=== PATIENT | female | born 1960 | race Caucasian/White ===

== ENCOUNTER → 2019-06-07 12:49 | Outpatient (BNVA) | payer MEDICARE, MEDICAID, SELFPAY | PROVIDERS: Family Provider Family Medicine; PCP Family Medicine; Visit Provider Nurse Practitioner Psychiatric/Mental Health | DX: F33.1 Major depressive disorder, recurrent, moderate (principal); Z63.79 Other stressful life events affecting family and household; F17.219 Nicotine dependence, cigarettes, with unspecified nicotine-induced disorders | CPT/HCPCS: 99213 ==

== ENCOUNTER 2019-06-21 14:35 | Outpatient (CLI) | payer MEDICARE, MEDICAID, SELFPAY ==
--- NOTE | 2019-06-21 14:44 | CT_ITS ---
WS: [id number] CT LUNG CANCER SCREENING DLP: 70.42 mGy.cm DIvol: 1.96 mGy CLINICAL INFORMATION SCREENING VISIT: Baseline COMPARISON: None available. FINDINGS Diagnostic quality: Satisfactory Comments: None. Lung Nodules: Benign calcified nodule RIGHT upper lobe measures 9 x 4 mm. There are no additional non calcified nodules are subsolid nodules. Subsegmental area of atelectasis at the lingula. Lungs: Lungs are mildly hyperexpanded. Curvilinear scar in the medial RIGHT lower lobe adjacent to th e spine. Heart: Normal size with no calcifications in the coronary arteries. No pericardial effusion. Other findings: Scattered calcification in aorta. No aneurysm Mild increase in thoracic kyphosis. No osteoblastic or osteolytic bone disease.. Pulmonary artery siz e is equal to the aorta. Small hiatal hernia. CT/CT lung screening [id number] IMPRESSION: LUNG-RADS: 1-Negative FOLLOW UP: 12 Month: Continue annual screening with LDCT 1. RIGHT upper lobe benign granuloma. 2. Mild coronary artery atherosclerosis.
--- NOTE | 2019-06-21 16:04 | XR_ITS ---
WS: [id number] SCREENING DEXA SCAN [employer] CLINICAL INFORMATION: DEXA COMPARISON: None. FINDINGS: The L1-L4 bone mineral density measures 1.229 g/cm2. This corresponds to a T score score of 0.4 and Z score of 1.0. Left femoral neck bone mineral density measures 1.052 g/cm2. This corresponds to a T score of 0.4 and Z score of 0.8. Right femoral neck bone mineral density measures 1.077 g/cm2. This corresponds to a T score 0.6of and Z score of 1.0. Mean femoral neck bone mineral density measures 1.065 g/cm2. This corresponds to a T score of 0.5 and Z score of 0.9. XR/XR DEXA axial skeleton* [id number] IMPRESSION: Normal bone mineralization. Patient's FRAX calculated 10 year probability for major osteoporotic fracture i s 6.1 % and osteoporotic hip fracture is 0.3%.
== END 2019-06-21 14:36 | disposition home or self-care (01) ==
PROVIDERS: Family Provider Family Medicine; PCP Family Medicine; Visit Provider Family Medicine
DX: Z12.2 Encounter for screening for malignant neoplasm of respiratory organs (principal); Z78.0 Asymptomatic menopausal state; J84.10 Pulmonary fibrosis, unspecified; I25.10 Atherosclerotic heart disease of native coronary artery without angina pectoris
CPT/HCPCS: 77080; G0297

== ENCOUNTER 2019-06-29 04:39 | Emergency (ER) | payer MEDICARE, MEDICAID, SELFPAY ==
[2019-06-29] VITALS (13 sets, daily range): BP systolic 134–155; BP diastolic 55–83; PULSE 80–97; RESP 16–18; O2SAT 93–99; BMI 29.9
--- NOTE | 2019-06-29 04:44 | ED_ITS ---
Entered by Kristen Núñez, acting as scribe for HPI - SOB/Dyspnea General: Chief Complaint: Shortness of Breath/Dyspnea Stated Complaint: sob/hurts to breathe Time Seen by Provider: 06/29/19 04:43 Source: patient Mode of arrival: ambulatory Limitations: no limitations History of Present Illness: HPI Narrative: 58 yo f came to the er pov for shortness of breath and hurts to breath. Onset was this morning. Pt states that she went to urgent care on tuesday for chest congestion and pain in her back and has not gotten any better at this time. Pt states that she has a productive cough. MD elicited complaint: shortness of breath and cough Onset (ago): day(s) (2 days ago) Context: recent illness Timing: intermittent Severity: mild Exacerbating factors: nothing Relieving factors: nothing Associated symptoms: Reports chest congestion; Deny abdominal pain, chest pain, fever(s), nausea or vomiting Treatment prior to arrival: none Related Data: Home oxygen amount: none Review of Systems General: Reports: other (negative unless marked) Const: Denies: fever, chills, body aches or change in appetite Eyes: Denies: blurry vision or eye discomfort ENMT: Denies: throat pain or dental pain Card: Denies: chest pain Resp: Reports: shortness of breath and chest congestion GI: Denies: abdominal pain, nausea, vomiting or diarrhea : Denies: painful urination Musc: Denies: neck pain or back pain Skin/Breast: Denies: rash Neuro: Denies: headache Psych: Denies: depression Gavin/Lymph: Denies: easy bruising All/Imm: Denies: hives PFS ED PFSH: Social History Smoking and tobacco status: current every day smoker cigarettes Packs smoked per day: 0.25 Alcohol intake: never Lives independently: Yes Household members: significant other Marital status: Life Partner Female Reproductive History: Para: 4 Spontaneous abortions: Yes Physical Exam Const: COMMON NORMALS: no apparent distress, oriented x3 and healthy appearing HENMT: COMMON NORMALS: normocephalic and head/scalp atraumatic HEAD & SCALP: normocephalic and atraumatic Eye: COMMON NORMALS: PERRL and EOMs intact bilaterally PUPIL: Yes PERRL Neck/C-Spine: COMMON NORMALS: full ROM and supple Chest: COMMONS NORMALS: inspection of chest normal and palpation of chest normal Resp: COMMON NORMALS: normal respiratory effort, no retractions, no use of accessory muscles and clear to auscultation bilaterally AUSCULTATION: clear to auscultation bilaterally Cardio: COMMON NORMALS: regular rate, regular rhythm and no murmurs RATE: regular rate RHYTHM: regular rhythm GI: COMMON NORMALS: normal to inspection, nondistended, normoactive bowel sounds, soft to palpation, non-tender and no masses PALPATION: Yes soft Extremity: COMMON NORMALS: normal to inspection and full ROM Neuro: COMMON NORMALS: oriented x3, moves all extremities and no focal motor deficits Psych: COMMON NORMALS: mental status grossly normal, thought process normal and cooperative THOUGHT PROCESS: normal thought process Skin: COMMON NORMALS: no rashes or lesions noted and no wounds GENERAL SKIN EXAM: no rashes or lesions noted Course Vital Signs: Vital signs: Vital Signs Pulse Rate 93 06/29/19 06:05 Respiratory Rate 18 06/29/19 05:35 Blood Pressure 146/76 06/29/19 06:10 Pulse Oximetry 94 06/29/19 06:05 MDM - SOB/Dyspnea MDM Narrative: Medical decision making narrative: Patient presents here with chest pain that is very atypical in nature. Patient was recently diagnosed with the flu likely causing this. Her d-dimer is negative with no signs of pulmonary embolism. Patient's EKG and troponin are normal as well. Patient is stable for discharge and is return if worsening. Lab Data: Labs: Lab Results 06/29/19 06/29/19 06/29/19 Range/Units 04:52 05:15 05:15 WBC 6.9 (4.0-10.0) 10^3/ uL RBC 4.41 (4.1-5.3) 10^6/u L Hgb 13.3 (11.5-15.3) g/dL Hct 40.4 (37.0-47.0) % MCV 91.6 (81-99) fL MCH 30.2 (28.0-34.0) pg MCHC 32.9 (30.0-36.0) g/dL RDW 12.4 (12.1-15.1) % Plt Count 180 (130-400) 10^3/c mm MPV 11.2 H (7.4-10.4) fL Neut % (Auto) 58.1 % Lymph % (Auto) 31.3 % Barber % (Auto) 8.7 % Eos % (Auto) 0.9 % Baso % (Auto) 0.6 % Neut # (Auto) 4.0 (1.8-7.7) 10^3/u L Lymph # (Auto) 2.2 (0.8-4.8) 10^3/u L Barber # (Auto) 0.6 (0.2-0.9) 10^3/u L Eos # (Auto) 0.1 (0.0-0.8) 10^3/u L Baso # (Auto) 0.0 (0.0-0.1) 10^3/u L Nucleated RBC % (a uto) 0 % Nucleated RBCs # 0.0 /100WBC PT 12.70 (10.5-13.3) SECO NDS INR 0.92 (0.8-1.2) D-Dimer 0.32 (0-0.59) ug/mIFE U Sodium (136-145) mmol/L Potassium (3.5-5.1) mmol/L Chloride (98-107) mmol/L Carbon Dioxide (22-29) mmol/L Anion Gap (5-19) BUN (6-20) mg/dL Creatinine (0.5-0.9) mg/dL GFR Calculation (90-130) mL/min Glucose (65-115) mg/dL Calcium (8.5-10.5) mg/dL Total Bilirubin (0.15-1.2) mg/dL AST (0-32) U/L ALT (0-33) U/L Alkaline Phosphata se (35-105) IU/L Troponin T Baselin e (0-10) ng/mL Total Protein (6.6-8.7) g/dL Albumin (3.5-5.2) g/dL Globulin (1.3-4.6) g/dL Influenza Type A A g Positive H (Negative) POC Influenza B Ag Negative (Negative) 06/29/19 06/29/19 Range/Units 05:15 05:15 WBC (4.0-10.0) 10^3/ uL RBC (4.1-5.3) 10^6/u L Hgb (11.5-15.3) g/dL Hct (37.0-47.0) % MCV (81-99) fL MCH (28.0-34.0) pg MCHC (30.0-36.0) g/dL RDW (12.1-15.1) % Plt Count (130-400) 10^3/c mm MPV (7.4-10.4) fL Neut % (Auto) % Lymph % (Auto) % Barber % (Auto) % Eos % (Auto) % Baso % (Auto) % Neut # (Auto) (1.8-7.7) 10^3/u L Lymph # (Auto) (0.8-4.8) 10^3/u L Barber # (Auto) (0.2-0.9) 10^3/u L Eos # (Auto) (0.0-0.8) 10^3/u L Baso # (Auto) (0.0-0.1) 10^3/u L Nucleated RBC % (a uto) % Nucleated RBCs # /100WBC PT (10.5-13.3) SECO NDS INR (0.8-1.2) D-Dimer (0-0.59) ug/mIFE U Sodium 141 (136-145) mmol/L Potassium 3.6 (3.5-5.1) mmol/L Chloride 103 (98-107) mmol/L Carbon Dioxide 25 (22-29) mmol/L Anion Gap 16.6 (5-19) BUN 12 (6-20) mg/dL Creatinine 0.7 (0.5-0.9) mg/dL GFR Calculation 85.6 L (90-130) mL/min Glucose 97 (65-115) mg/dL Calcium 9.0 (8.5-10.5) mg/dL Total Bilirubin 0.3 (0.15-1.2) mg/dL AST 19 (0-32) U/L ALT 23 (0-33) U/L Alkaline Phosphata se 85 (35-105) IU/L Troponin T Baselin e 7 (0-10) ng/mL Total Protein 7.1 (6.6-8.7) g/dL Albumin 4.3 (3.5-5.2) g/dL Globulin 2.8 (1.3-4.6) g/dL Influenza Type A A g (Negative) POC Influenza B Ag (Negative) Imaging Data^: CXR: Attestation: I personally reviewed and interpreted this imaging study as follows: My impression: No acute abnormality EKG Data^: EKG 1: Attestation: I personally reviewed and interpreted this EKG as follows: EKG Interpretation Date: 06/29/19 EKG interpretation time: 04:55 Interpretation: nsr hr [address] or t wave abnormalities qrs 93 qtc 383 Discharge Plan Discharge Patient Disposition: Home, Self-Care Clinical Impression: Influenza Condition: Stable Prescriptions: New Tamiflu 75 mg capsule 75 mg PO BID 5 Days Qty: 10 RF: 0 No Action Trintellix 5 mg tablet 5 mg PO .morning Qty: 30 RF: 0 hydroxyzine HCl 50 mg tablet 50 mg PO BID PRN (Reason: anxiety) Qty: 60 RF: 4 rosuvastatin [Crestor] 20 mg tablet 20 mg PO QDAY RF: 0 diclofenac sodium [Voltaren] 1 % gel 4 gm TOPICAL QID PRNRF: 0 omeprazole 10 mg capsule,delayed release(DR/EC) 10 mg PO QDAY RF: 0 tiagabine 2 mg tablet 2 mg PO .one in am two in pm RF: 0 albuterol sulfate [Ventolin HFA] 90 mcg/actuation HFA aerosol inhaler 2 puff INHALATION Q6H PRN (Reason: shortness of breath or wheezing) Qty: 8.5 RF: 0 ibuprofen 800 mg tablet 800 mg PO TID PRN (Reason: pain) Qty: 90 RF: 0 amlodipine 5 mg tablet 5 mg PO QDAY Qty: 30 RF: 0 Discharge Orders: Discharge Order (Routine); Ordered 06/29/19 Ordered By: Therese Hebert Referrals: Kia Dave DO [Primary Care Provider] - 1-3 days Discharge Diet: Advance as tolerated Discharge Activity: Resume usual activity Patient Instructions: Influenza (ED) Discharge Date/Time: 06/29/19 06:26 Coding Level of Care Code ED Manifest/Order Organizer Print Orders for Chg Fwd Exam Comprehensive The documentation recorded by the Wilton mccullough Stephanie Lyn, accurately reflects the service I personally performed and the decisions made by me, Therese Hebert MD Jun 29, 2019 04:39
--- NOTE | 2019-06-29 04:48 | XR_ITS ---
WS: [id number] XR chest 1V portable [id number] REASON FOR EXAM: cp FINDINGS: The heart and mediastinal interfaces normal. The lung orozco are well aerated no pneumonia, pleural effusion, pulmonary edema, pneumothorax, or ma ss effect. The hilum and apices normal. No osseous abnormalities. XR/XR chest 1V portable [id number] IMPRESSION: Negative chest for active pathology.
--- NOTE | 2019-06-29 04:58 | PC.NURSE ---
EKG done at 0450 and shown to ER doctor. UA collected and sent to lab.
[2019-06-29] MEDS: sodium chloride 0.9% 1,000 ML 999 ML IV (05:08)
[2019-06-29 05:20] LABS: Influenza A by IFA Positive (Negative); Influenza B by IFA Negative (Negative)
[2019-06-29 05:34] LABS: Basophils % 0.6 %; Eosinophils # 0.1 10^3/uL (0.0-0.8); Eosinophils % 0.9 %; Hematocrit 40.4 % (37.0-47.0); Hemoglobin 13.3 g/dL (11.5-15.3); Lymphocytes # 2.2 10^3/uL (0.8-4.8); Lymphocytes % 31.3 %; Mean Corpuscular HGB Conc 32.9 g/dL (30.0-36.0); Mean Corpuscular Hemoglobin 30.2 pg (28.0-34.0); Mean Corpuscular Volume 91.6 fL (81-99); Mean Platelet Volume 11.2 fL (7.4-10.4); Monocytes # 0.6 10^3/uL (0.2-0.9); Monocytes % 8.7 %; Neutrophils % 58.1 %; Nucleated Red Blood Cells % 0 %; Platelet Count 180 10^3/cmm (130-400); Red Blood Count 4.41 10^6/uL (4.1-5.3); Red Cell Distribution Width 12.4 % (12.1-15.1); White Blood Count 6.9 10^3/uL (4.0-10.0)
[2019-06-29] MEDS: ipratropium-albuterol 3 mL Neb INHALATION (05:35)
[2019-06-29 05:48] LABS: INR 0.92 (0.8-1.2)
[2019-06-29 05:51] LABS: D Dimer 0.32 ug/mIFEU (0-0.59)
[2019-06-29 05:58] LABS: Alanine Aminotransferase 23 U/L (0-33); Albumin Level 4.3 g/dL (3.5-5.2); Alkaline Phosphatase 85 IU/L (35-105); Anion Gap 16.6 (5-19); Aspartate Amino Transferase 19 U/L (0-32); Blood Urea Nitrogen 12 mg/dL (6-20); Carbon Dioxide 25 mmol/L (22-29); Chloride 103 mmol/L (98-107); Globulin 2.8 g/dL (1.3-4.6); Glomerular Filtration Rate 85.6 mL/min (90-130); Glucose 97 mg/dL (65-115); Potassium 3.6 mmol/L (3.5-5.1); Sodium 141 mmol/L (136-145); Total Bilirubin 0.3 mg/dL (0.15-1.2); Total Protein 7.1 g/dL (6.6-8.7)
[2019-06-29 06:01] LABS: Troponin(5th) Baseline 7 ng/mL (0-10)
--- NOTE | 2019-06-29 11:19 | ECG_ITS ---
Measurements Intervals [place] Rate: 85 P: 57 OH: 162 QRS: 51 QRSD: 93 T: 55 QT: 341 QTc: 406 SINUS RHYTHM POSSIBLE RIGHT VENTRICULAR CONDUCTION DELAY [RSR (QR) IN V1/V2] Compared to ECG 11/09/2018 17:31:50 No significant changes Electronically Signed On 06-29-2019 15:37:44 BRACER by Yoselin Packer M.D. [email or web address]
== END 2019-06-29 06:26 | disposition home or self-care (01) ==
PROVIDERS: Emergency Provider Emergency Medicine; Family Provider Family Medicine; PCP Family Medicine
DX: J11.1 Influenza due to unidentified influenza virus with other respiratory manifestations (principal); F17.210 Nicotine dependence, cigarettes, uncomplicated
CPT/HCPCS: 12345; 71045; 80053; 84484; 85025; 85378; 85610; 87804; 93005; 94640; 96360; 99283; 99284; J7030; J7611

== ENCOUNTER 2019-07-02 15:31 | Outpatient (CLI) | payer MEDICARE, MEDICAID, SELFPAY ==
--- NOTE | 2019-07-02 15:47 | MM_ITS ---
WS: [id number] BILATERAL SCREENING DIGITAL MAMMOGRAM WITH CAD HISTORY: SCREENING COMPARISON: 05/03/2018 and 04/16/2000 09/03/2013 Bilateral CC and MLO views submitted. Computer aided detection analyzed. Breast composition: There are scattered areas of fibroglandular density. No suspicious masses, microc alcifications or architectural distortion. Long-term stability of asymmetry upper outer quadrant of t he LEFT breast. MM/[place] [id number] IMPRESSION: BI-RADS: 2-Benign FOLLOW UP: 1 Year Follow-up
== END 2019-07-02 15:32 | disposition home or self-care (01) ==
LOC: RADSHAW 15:37
PROVIDERS: Family Provider Family Medicine; PCP Family Medicine; Visit Provider Family Medicine
DX: Z12.31 Encounter for screening mammogram for malignant neoplasm of breast (principal)
CPT/HCPCS: 77067

== ENCOUNTER → 2019-07-09 13:41 | Outpatient (BNVA) | payer MEDICARE, MEDICAID, SELFPAY | PROVIDERS: Family Provider Family Medicine; PCP Family Medicine; Visit Provider Nurse Practitioner Psychiatric/Mental Health | DX: F33.1 Major depressive disorder, recurrent, moderate (principal); Z63.79 Other stressful life events affecting family and household; F17.219 Nicotine dependence, cigarettes, with unspecified nicotine-induced disorders | CPT/HCPCS: 99213 ==

== ENCOUNTER → 2019-07-26 16:31 | Outpatient (BNVA) | payer MEDICARE, MEDICAID, SELFPAY | PROVIDERS: Family Provider Family Medicine; PCP Family Medicine; Visit Provider Nurse Practitioner | DX: J44.9 Chronic obstructive pulmonary disease, unspecified (principal) | CPT/HCPCS: 71046; 85025 ==

== ENCOUNTER 2019-09-20 06:42 | Outpatient (CLI) | payer MEDICARE, MEDICAID, SELFPAY ==
[2019-09-19 10:10] VITALS: BMI 32.8
[2019-09-20] VITALS (10 sets, daily range): BP systolic 100–118; BP diastolic 51–80; PULSE 71–80; RESP 14–20; TEMP 37; O2SAT 92–96
--- NOTE | 2019-09-20 06:00 | XACV_ITS ---
Exam Room: [facility] Gender: Female : 1960 Any Known Allergies: Other Exam Priority: Routine Procedure(s): Procedure Description: Diagnostic procedure Procedure Description: Left Heart Catheterization Procedure Description: Left ventriculography Procedure Description: Coronary Angiography Diagnostic Cath Status: Elective Diagnostic Findings Patient with continued unrelenting chest pain despite 2- stress test. Recommended for coronary angiography. Procedure was done from the right radial artery. There is right coronary artery dominance. The left main and LAD are normal. Circumflex contains mild 20% narrowing in the proximal portion but otherwise the artery is normal. The right coronary artery is the dominant vessel. There is minor 10 to 20% narrowing in the midportion but otherwise the vessel is normal. Conclusions Minimal nonobstructive coronary artery disease with normal LV function. Interventional RX Recommendation: none Diagnostic RX Recommendation: none Anticoagulation: Heparin Ventriculography Ejection Fraction: 70.0 % Pressures Phase:Rest AO : 95 mmHg / 72 mmHg ( 83 mmHg ) @ 2:19:00 AM 121 mmHg / 60 mmHg ( 87 mmHg ) @ 2:26:00 AM 120 mmHg / 61 mmHg ( 88 mmHg ) @ 2:26:00 AM LV : 127 mmHg / -18 mmHg / @ 2:24:00 AM 122 mmHg / -15 mmHg / @ 2:25:00 AM 125 mmHg / -15 mmHg / @ 2:26:00 AM Valves Phase:DefaultPhase AV : 4.0 mmHg @ 7:32:06 AM AV Mean Gradient: 13.0 mmHg @ 7:32:06 AM 13.0 mmHg @ 7:32:06 AM Clinical Evaluation EBL: 5mL-10mL Procedural Details Procedure Consent Obtained. Pre-Procedure Time Out. Identified patient by full name and date of as verbalized by the patient/guarantor. Does the consent match the physician's order: Yes. Accurate & Complete Informed Consent: Yes. Inpatient/Outpatient History & Physical on Chart: Yes. If H&P is completed, is and addenduem needed: Yes; If yes, is the addendum complete: Yes. Visualize and Verify Site with Patient/Guarantor: N/A. Relevant Radiology Images available: Yes. Pre-op teaching completed and patient verbalized understanding. The risks, benefits, and alternatives of sedation and/or procedure were discussed by physician. The patient agrees to continue. Procedure started. [facility] Clinical Fraility Score: 3: Managing Well. Backup Engineer Indications: New Onset Angina. Chest Pain Symptom Assessment: Typical Angina Symptoms. Correct patient, site and procedure confirmed by cath team. Current diagnosis: Chest Pain. PERRLA. 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 Lungs clear x 5 lobes. IV Site on Arrival: 20 gauge in the left anticubital. IV Fluids: 0.9% NaCl at KVO. 0 mL infused prior to laborer. Pre Procedural Pulses: bilateral dorsalis pedis was 2+. Pre Procedural Pulses: bilateral posterior tibial was 2+. Pre Procedural Pulses: bilateral radial was 3+. Oxygen started at 2liters/min via nasal canula. right radial was prepped with chloroprep then draped in the usual sterile fashion. right groin was prepped with chloroprep then draped in the usual sterile fashion. Physician notified. Baseline sample Acquired. HR: 74 BPM. Patient's family unavailable. Physician arrived. Physician scrubbed in. Immediate Pre-Procedure Time Out. Correct Patient: Yes; Correct Procedure: Yes; Correct Site: Yes; Correct Patient Position: Yes; Correct Supplies: Yes; Dried Flammable Prep: Yes; Blood Products Available: N/A;. Lidocaine 1% infiltrated to the right radial. Arterial access obtained. A 6 lao TIG catheter in over wire. Multiple views taken of left coronary artery. Multiple views taken of right coronary artery. Catheter removed over the exchange wire. A 6 lao Angled Pig catheter in over wire. EDP Sample taken: LV 127/-19,12; HR: 88 BPM; SpO2: 99%. LV gram performed in JACKSON @ 10 mL/second for a total of 30 mL. EDP Sample taken: LV 122/-16,10; HR: 78 BPM; SpO2: 99%. Pullback taken: LV 125/-16,10; AO 121/60(87); Mean: 13mmHg, Peak to Peak: 4mmHg, SEP: 17sec/min; HR: 78 BPM; SpO2: 100%. Catheter removed over the exchange wire. Physician scrubbed out. TR band placed. Hemostasis obtained. A TR Band was successful obtaining hemostatsis at the Right Radial artery insertion site. Post Procedure: Pulses reassessed and unchanged. PERRLA. 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 No VTE prophylaxis required. Total IV fluids: 50 mL. Contrast type used: Visipaque 320 mgI/mL, 500 mL bottle. Medication's Wasted: Lidocaine 1% = 18 mL. Medication's Wasted: Nitro = 49.8 mg. Medication's Wasted: Heparin = 1000 units. Medication's Wasted: Other = Versed 3 mg. Post-op diagnosis: Normal Coronaries. Complications: None. Estimated blood loss: 5mL-10mL. Procedure completed. Patient transferred by wheelchair to ICU. Vital chart was stopped. Site: Right Radial artery Sheath Size: 6 Fr Hemostasis Method: TR Band Hemostasis Success: Successful Procedure Medications Start: 7:14 AM Stop: 7:14 AM Medication: Versed Amount: 2 mg Route: I.V. Start: 7:16 AM Stop: 7:16 AM Medication: Verapamil Amount: 5 mg Route: I.A. Start: 7:16 AM Stop: 7:16 AM Medication: Nitrogylcerin Amount: 200 mcg Route: I.A. Start: 7:19 AM Stop: 7:19 AM Medication: Heparin Amount: 5000 units Route: I.V. I, the attending physician, have reviewed and verified all procedure medications. Yes, all medications given per verbal order History/Risk Factors Hypertension: Yes Dyslipidemia: Yes Peripheral Arterial Disease (PAD): No Myocardial Infarction (AZ): No Obesity: Yes Renal Disease: No Tobacco Use: Current/Recent(w/in 1 year) Prior Interventions PCI: No CABG: No Valve Surgery: No Report Signatures Finalized by:Dr. Chucky Julien MD on 09/20/2019 7:38:20 AM
[2019-09-20] MEDS: diphenhydrAMINE 50 mg Capsule PO (06:19)
[2019-09-20 06:42] LABS: Basophils # 0.1 10^3/uL (0.0-0.1); Basophils % 1.2 %; Eosinophils # 0.5 10^3/uL (0.0-0.8); Hematocrit 42.3 % (37.0-47.0); Hemoglobin 13.9 g/dL (11.5-15.3); Lymphocytes % 33.8 %; Mean Corpuscular HGB Conc 32.9 g/dL (30.0-36.0); Mean Corpuscular Hemoglobin 29.4 pg (28.0-34.0); Mean Corpuscular Volume 89.4 fL (81-99); Mean Platelet Volume 10.7 fL (7.4-10.4); Monocytes # 0.7 10^3/uL (0.2-0.9); Monocytes % 7.8 %; Neutrophils # 4.5 10^3/uL (1.8-7.7); Neutrophils % 50.9 %; Nucleated Red Blood Cells % 0 %; Platelet Count 228 10^3/cmm (130-400); Red Blood Count 4.73 10^6/uL (4.1-5.3); Red Cell Distribution Width 12.1 % (12.1-15.1); White Blood Count 8.9 10^3/uL (4.0-10.0)
[2019-09-20 06:51] LABS: Anion Gap 16.1 (5-19); Blood Urea Nitrogen 14 mg/dL (6-20); Calcium 9.2 mg/dL (8.5-10.5); Carbon Dioxide 25 mmol/L (22-29); Chloride 104 mmol/L (98-107); Glomerular Filtration Rate 64.1 mL/min (90-130); Glucose 112 mg/dL (65-115); Osmolality Calculated 289 mOsm/kg (285-295); Potassium 4.1 mmol/L (3.5-5.1); Sodium 141 mmol/L (136-145)
--- NOTE | 2019-09-20 06:59 | PM.HP ---
Providers/Chief Complaint Admitting Physician: Chucky Julien MD Primary Care Provider: Kia Dave DO Chief Complaint: chest pain History of Present Illness Katiuska Mojica is a 58 year old female who is being put in the hospital today for purposes of cardiac catheterization. She has seen 1 of my associates as an outpatient describing a heaviness in her chest and describing it as a chest cold . It last 2 to 3 minutes. Is relieved with rest. She feels like it gets worse if she is under stress or gets anxious. She complains of fatigue, palpitations and shortness of breath. She has had stress testing in the past which is been negative. More recently a sestamibi examination continues to be normal. Because of her continued symptoms it is been recommended she undergo coronary angiography. Review of Systems General: Reports: 10 or more systems reviewed and unremarkable except in HPI and below Medications/Allergies Home Medications Medication Instructions Recorded Confirmed Last Taken Type diclofenac sodium 1 % topical gel 4 gm TOPICAL QID PRN 05/11/19 09/19/19 Unknown History hydroxyzine HCl 50 mg tablet 50 mg PO BID PRN #60 tab 06/07/19 09/19/19 Unknown Rx bupropion HCl 75 mg tablet 75 mg PO .morning #30 tab 07/09/19 09/19/19 09/19/19 08:00 Rx albuterol sulfate 90 mcg/actuation 2 puff INHALATION Q6H PRN #8.5 gm 07/10/19 09/19/19 09/19/19 20:00 Rx aerosol inhaler nitroglycerin 0.4 mg sublingual 0.4 mg SUBLINGUAL Q5M PRN #1 pkg 08/13/19 09/19/19 Unknown Rx tablet rosuvastatin 20 mg tablet 20 mg PO QDAY #30 tab 08/21/19 09/19/19 09/19/19 20:00 Rx umeclidinium 62.5 mcg-vilanterol 1 inh INHALATION Q24H 90 Days #60 08/21/19 09/19/19 09/19/19 20:00 Rx 25 mcg/actuation powdr for each inhalation albuterol sulfate 2.5 mg INHALATION Q4H PRN #90 ml 09/03/19 09/19/19 09/19/19 20:00 Rx sodium chloride 7 % for 1 inh INHALATION BID #240 ml 0509/19/19 09/19/19 20:00 Rx nebulization tiagabine 2 mg tablet 2 mg PO .one in am two in pm #90 09/10/19 09/19/19 09/19/19 20:00 Rx tab amlodipine 10 mg PO QDAY 09/19/19 09/19/19 09/20/19 05:30 History aspirin 325 mg PO BID 09/19/19 09/19/19 09/19/19 08:00 History Allergies Allergy/AdvReac Type Severity Reaction Status Date / Time fentanyl Allergy Severe ADR-Confusi Verified 09/20/19 06:46 on morphine Allergy Severe ADR-Nausea Verified 09/20/19 06:46 acetaminophen [From Vicodin] Allergy ADR-Nausea Verified 09/20/19 06:46 codeine Allergy ADR-Nausea Verified 09/20/19 06:46 hydrocodone [From Vicodin] Allergy ADR-Nausea Verified 09/20/19 06:46 oxycodone Allergy ADR-Nausea Verified 09/20/19 06:46 tramadol [From Ultram] Allergy ADR-Nausea Verified 09/20/19 06:46 PFSH Acute PFSH: Medical History Arthralgia of multiple joints Benign essential HTN COPD (chronic obstructive pulmonary disease) Dyslipidemia Dysphagia, idiopathic GERD (gastroesophageal reflux disease) Major depressive disorder, recurrent, moderate Other intervertebral disc degeneration, thoracolumbar region Stress due to illness of family member Surgical History H/O neck surgery H/O: hysterectomy S/P cholecystectomy Status post carpal tunnel release Family History Other Anesthesia complication CAD (coronary artery disease) Cancer Stroke Social History Smoking and tobacco status: current every day smoker cigarettes Years cigarettes smoked: 40 [ Other cigarette details: Hx of 1PPD x 20 Years ] Second hand smoke exposure: Yes Smoking risk assessment/counseling performed?: Yes Alcohol intake: never Desire information about alcohol rehabilitation?: No Counseling given: No Desire information about substance/drug rehabilitation?: No Counseling given: No Lives independently: Yes Household members: significant other Marital status: Life Partner Number of children: 3 service: No Current occupational status: disabled History of recent travel: No Current gender identity: Female Vitals/I&O/Wt Last Vital Signs Temp 98.6 F 09/20/19 06:37 Pulse 80 09/20/19 06:37 Resp 14 09/20/19 06:37 BP 102/80 09/20/19 06:37 Pulse Ox 95 09/20/19 06:37 Weight last 48 hrs Weight 191 lb Physical Exam Narrative: EXAM NARRATIVE: GENERAL: In general she is comfortable at rest but looks much older than her stated age HEENT: Exam within normal limits. NECK: Supple without jugular vein distention. The carotid upstroke is normal without bruits. BACK: Exam normal. LUNGS: Clear. HEART: Regular rate and rhythm. ABDOMEN: Benign without organomegaly or tenderness. EXTREMITIES: No edema. NEUROLOGIC: Exam normal. SKIN: Unremarkable. Data : 09/20/19 06:30 09/20/19 06:30 A&P Assessment and plan (1) Dyslipidemia: Status: Acute (2) COPD (chronic obstructive pulmonary disease): Status: Chronic (3) Benign essential HTN: Status: Chronic (4) Nicotine addiction: Status: Acute (5) Stress due to illness of family member: Status: Acute (6) Chest pain: Status: Acute Additional A&P Information Elective coronary angiography Attestations Medical Necessity Statement*: Outpatient in a bed Coding Level of Care Code New Pt Acute Professor Of Special Education for Chg Fwd Patient Type New History Detailed Exam Detailed Medical Decision Making Moderate Complexity Diagnoses Dyslipidemia E78.5 COPD (chronic obstructive pulmonary disease) J44.9 Benign essential HTN I10 Nicotine addiction F17.200 Stress due to illness of family member Z63.79 Chest pain R07.9
[2019-09-20] MEDS: sodium chloride 0.9% 1,000 ML 100 ML IV (11:03)
--- NOTE | 2019-09-20 11:46 | PC.ADMIT ---
[address] Admission Note: The patient,Katiuska Mojica,58 y/o, was given written information regarding hospital policies, unit procedures and contact persons. Patient's smoking status: current every day smoker. Vital Signs - 8 hr 09/20/19 06:37 09/20/19 08:15 09/20/19 09:16 Temperature 98.6 F Pulse Rate 80 77 77 Respiratory Rate 14 19 H 19 H Blood Pressure 102/80 115/64 Blood Pressure [Left Arm] 118/61 118/61 Pulse Oximetry 95 92 92 09/20/19 09:31 09/20/19 09:46 09/20/19 10:01 Temperature Pulse Rate 71 72 Respiratory Rate 20 H 16 20 H Blood Pressure Blood Pressure [Left Arm] 113/68 110/63 100/63 Pulse Oximetry 93 96 93 09/20/19 10:16 09/20/19 10:31 09/20/19 10:45 Temperature Pulse Rate 72 74 73 Respiratory Rate 20 H 20 H 20 H Blood Pressure Blood Pressure [Left Arm] 103/51 112/65 102/64 Pulse Oximetry 93 93 93 09/20/19 11:14 Temperature Pulse Rate 73 Respiratory Rate 20 H Blood Pressure Blood Pressure [Left Arm] Pulse Oximetry 93
--- NOTE | 2019-09-20 14:42 | PC.NURSE ---
DISCHARGE INSTRUCTIONS REVIEWED WITH PT WHEELED OUT OF HOSPITAL TO PRIVATE VEHICLE. WISHED WELL
== END 2019-09-20 13:30 | disposition home or self-care (01) ==
LOC: ICU 09:23 → CCL 09:36 → ICU 09:38
PROVIDERS: PCP Family Medicine; Visit Provider Internal Medicine Cardiovascular Disease
DX: I25.10 Atherosclerotic heart disease of native coronary artery without angina pectoris (principal); R07.9 Chest pain, unspecified; E78.5 Hyperlipidemia, unspecified; J44.9 Chronic obstructive pulmonary disease, unspecified; I10 Essential (primary) hypertension; F17.210 Nicotine dependence, cigarettes, uncomplicated; Z63.79 Other stressful life events affecting family and household; K21.9 Gastro-esophageal reflux disease without esophagitis; F33.9 Major depressive disorder, recurrent, unspecified
CPT/HCPCS: 12345; 36415; 80048; 85025; 93452; C1769; C1887; C1894; J1644; J2001; J2250; J3490; J7030; Q0163; Q9967

== ENCOUNTER → 2019-09-27 11:12 | Outpatient (BNVA) | payer MEDICARE, MEDICAID, SELFPAY | PROVIDERS: PCP Family Medicine; Visit Provider Nurse Practitioner Family | DX: R07.9 Chest pain, unspecified (principal) | CPT/HCPCS: 80048 ==

== ENCOUNTER 2019-10-12 11:29 | Outpatient (CLI) | payer MEDICARE, MEDICAID, SELFPAY ==
[2019-10-12 14:06] LABS: Ferritin 57 ng/mL (15-150); Iron 64 ug/dL (37-145); Percent Saturation 21.4 % (20-50); Total Iron Binding Capacity 299 mcg/dl; Unsaturated Iron Binding 235 ug/dL (112-347)
== END 2019-10-12 11:30 | disposition home or self-care (01) ==
LOC: LAB 11:33
PROVIDERS: PCP Family Medicine; Visit Provider Internal Medicine Critical Care Medicine
DX: G25.81 Restless legs syndrome (principal); R06.02 Shortness of breath
CPT/HCPCS: 36415; 82728; 82785; 83540; 83550; 86003

== ENCOUNTER 2019-10-20 12:03 | Emergency (ER) | payer MEDICARE, MEDICAID, SELFPAY ==
[2019-10-20 12:07] VITALS: BP 123/74; PULSE 81; RESP 18; TEMP 36.6; O2SAT 95; BMI 30.7
--- NOTE | 2019-10-20 12:24 | ED_ITS ---
HPI - Back Pain/Injury General: Chief Complaint: Back Pain/Injury Stated Complaint: back/hip pain Time Seen by Provider: 10/20/19 12:20 History of Present Illness: HPI Narrative: Right hip pain worsening over the last couple months. Patient's had MRI and x-rays done showed a right hip arthritis and lumbar spine arthritis. 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 with ambulation no injury MD elicited complaint: other (Back and hip pain chronic) Pertinent past history: prior back pain and arthritis Onset (ago): month(s) Timing: progressively worsening Severity: moderate Similar Symptoms Previously: Yes Quality: aching Location: lumbar spine Radiation: none Exacerbating factors: movement, walking and lifting Relieving factors: immobilization Associated symptoms: Deny abdominal pain, chills, fever(s), nausea or vomiting Review of Systems Const: Denies: fever(s), chills or body aches Eyes: Denies: change in vision or blurry vision ENMT: Denies: throat pain or nasal congestion Card: Denies: chest pain or dyspnea on exertion Resp: Denies: dyspnea, productive cough or non-productive cough GI: Denies: abdominal pain, nausea or vomiting Musc: Reports: back pain, joint pain (Chronic right hip pain exacerbated) and joint stiffness; Denies: extremity pain Skin/Breast: Denies: rash Neuro: Denies: headache(s) Psych: Denies: anxiety or depression Gavin/Lymph: Denies: easy bruising PFSH ED PFSH: Medical History Arthralgia of multiple joints Benign essential HTN COPD (chronic obstructive pulmonary disease) Dyslipidemia Dysphagia, idiopathic GERD (gastroesophageal reflux disease) Major depressive disorder, recurrent, moderate Other intervertebral disc degeneration, thoracolumbar region Stress due to illness of family member Surgical History H/O neck surgery H/O: hysterectomy S/P cholecystectomy Status post carpal tunnel release Family History Other Anesthesia complication CAD (coronary artery disease) Cancer Stroke Social History Smoking and tobacco status: former smoker Quit status (tobacco): has quit using tobacco Year quit tobacco: 2019 - PD x 40 Years Second hand smoke exposure: Yes Alcohol intake: never Desire information about alcohol rehabilitation?: No Counseling given: No Desire information about substance/drug rehabilitation?: No Counseling given: No Lives independently: Yes Household members: significant other Marital status: Life Partner Number of children: 3 service: No Current occupational status: disabled History of recent travel: No Current gender identity: Female Physical Exam Const: COMMON NORMALS: no acute distress, average body habitus and patient oriented x3 HENMT: COMMON NORMALS: normocephalic HEAD & SCALP: normal to inspection and normocephalic FACE & SINUS: normal facial exam Eye: COMMON NORMALS: conjunctivae normal GENERAL EYE: appearance normal, both eyes and all related structures CONJUNCTIVA: Yes conjunctivae normal Neck/C-Spine: COMMON NORMALS: no JVD Chest: COMMONS NORMALS: normal inspection of the chest Resp: COMMON NORMALS: normal respiratory effort and clear to auscultation bilaterally AUSCULTATION: clear to auscultation bilaterally Cardio: COMMON NORMALS: no JVD, regular rate and regular rhythm RATE: regular rate RHYTHM: regular rhythm GI: COMMON NORMALS: Normal to inspection, nondistended, normoactive bowel sounds present Extremity: COMMON NORMALS: normal to inspection and full ROM NARRATIVE EXTREMITY EXAM: Pain to the right hip with ambulation does have good range of motion Neuro: COMMON NORMALS: patient oriented x3 Course Vital Signs: Vital signs: Vital Signs Temperature 97.9 F 10/20/19 12:07 Pulse Rate 81 10/20/19 12:07 Respiratory Rate 18 10/20/19 12:07 Blood Pressure 123/74 10/20/19 12:07 Pulse Oximetry 95 10/20/19 12:07 Discharge Plan Discharge Prescriptions: No Action amlodipine 10 mg tablet 10 mg PO QDAY Qty: 90 RF: 2 bupropion HCl 75 mg tablet 75 mg PO .morning Qty: 30 RF: 3 Anoro Ellipta 62.5-25 mcg/actuation blister with device 1 inh INHALATION Q24H 90 Days Qty: 60 RF: 3 fluticasone propionate [Flonase Allergy Relief] 50 mcg/actuation spray,suspension 1 spray INTRANASAL BID 30 Days Qty: 16 RF: 3 albuterol sulfate 2.5 mg /3 mL (0.083 %) solution for nebulization 2.5 mg INHALATION Q4H PRN (Reason: COPD) Qty: 90 RF: 2 albuterol sulfate [Ventolin HFA] 90 mcg/actuation HFA aerosol inhaler 2 puff INHALATION Q6H PRN (Reason: shortness of breath or wheezing) Qty: 8.5 RF: 3 tiagabine 2 mg tablet 2 mg PO .one in am two in pm Qty: 90 RF: 0 rosuvastatin [Crestor] 20 mg tablet 20 mg PO QDAY Qty: 30 RF: 0 diclofenac sodium [Voltaren] 1 % gel 4 gm TOPICAL QID PRN (Reason: Pain) Qty: 100 RF: 0 Coding Level of Care Code ED 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
[2019-10-20] MEDS: methylPREDNISolone (DEPO) 80 MG/ML INJ 1 mL IM (12:35)
[2019-10-20 13:31] VITALS: BP 143/75; PULSE 72; RESP 17; O2SAT 98
== END 2019-10-20 13:34 | disposition home or self-care (01) ==
PROVIDERS: Emergency Provider Nurse Practitioner Family; PCP Family Medicine
DX: M54.9 Dorsalgia, unspecified (principal); M25.551 Pain in right hip; I10 Essential (primary) hypertension; J44.9 Chronic obstructive pulmonary disease, unspecified; E78.5 Hyperlipidemia, unspecified; Z87.891 Personal history of nicotine dependence
CPT/HCPCS: 12345; 96372; 99281; 99283; J1040

== ENCOUNTER → 2019-11-22 07:22 | Outpatient (BNVA) | payer MEDICARE, MEDICAID, SELFPAY | PROVIDERS: PCP Family Medicine; Visit Provider Nurse Practitioner Psychiatric/Mental Health | DX: F33.1 Major depressive disorder, recurrent, moderate (principal); Z63.79 Other stressful life events affecting family and household; F17.219 Nicotine dependence, cigarettes, with unspecified nicotine-induced disorders | CPT/HCPCS: 99213 ==

== ENCOUNTER → 2019-12-24 10:36 | Outpatient (BNVA) | payer MEDICARE, MEDICAID, SELFPAY | PROVIDERS: PCP Family Medicine; Referring Provider Dermatology; Visit Provider Dermatology | DX: Z85.820 Personal history of malignant melanoma of skin (principal); L21.9 Seborrheic dermatitis, unspecified; B37.2 Candidiasis of skin and nail; L82.1 Other seborrheic keratosis; L70.8 Other acne | CPT/HCPCS: 10040; 99203; 99204 ==

== ENCOUNTER → 2020-01-11 09:09 | Outpatient (BNVA) | payer MEDICARE, MEDICAID, SELFPAY | PROVIDERS: PCP Family Medicine; Visit Provider Family Medicine | DX: E78.5 Hyperlipidemia, unspecified (principal); Z13.6 Encounter for screening for cardiovascular disorders | CPT/HCPCS: 80053; 80061 ==

== ENCOUNTER → 2020-02-14 07:26 | Outpatient (BNVA) | payer MEDICARE, MEDICAID, SELFPAY | PROVIDERS: PCP Family Medicine; Visit Provider Nurse Practitioner Psychiatric/Mental Health | DX: F33.1 Major depressive disorder, recurrent, moderate (principal); Z63.79 Other stressful life events affecting family and household; F17.219 Nicotine dependence, cigarettes, with unspecified nicotine-induced disorders | CPT/HCPCS: 99214 ==

== ENCOUNTER → 2020-03-25 07:39 | Outpatient (BNVA) | payer MEDICARE, MEDICAID, SELFPAY | PROVIDERS: PCP Nurse Practitioner Family; Visit Provider Nurse Practitioner Psychiatric/Mental Health | DX: F33.1 Major depressive disorder, recurrent, moderate (principal); Z63.79 Other stressful life events affecting family and household; F17.219 Nicotine dependence, cigarettes, with unspecified nicotine-induced disorders | CPT/HCPCS: 99213 ==

== ENCOUNTER 2020-03-31 12:00 | Outpatient (CLI) | payer MEDICARE, MEDICAID, SELFPAY | END 2020-03-31 12:01 | disposition home or self-care (01) | LOC: SLEEP 04-01 14:58 | PROVIDERS: PCP Nurse Practitioner Family; Visit Provider Internal Medicine Critical Care Medicine | DX: G47.10 Hypersomnia, unspecified (principal) | CPT/HCPCS: G0399 ==

== ENCOUNTER 2020-06-04 13:29 | Outpatient (CLI) | payer MEDICARE, MEDICAID, SELFPAY ==
--- NOTE | 2020-06-04 13:33 | CT_ITS ---
WS: [id number] LDCT LUNG CANCER SCREENING TECHNIQUE: Noncontrast CT of the chest with coronal and sagittal reformatted images. CLINICAL INFORMATION: TOBACCO USE COMPARISON: CT June 21, 2019 DLP: 56.17 mGy.cm DIvol: 1.[address] scans at [facility] use at least one of these dose optimization techniques: automat ed exposure control; mA and/or kV adjustment per patient size (includes targeted exams where dose is matched to clinical indication); or iterative reconstruction. FINDINGS: Calcified granuloma right upper lobe is unchanged. Additional partially calcified nodule along the ri ght fissure unchanged measuring 5.5 mm. Minimal fibrosis right lower lobe medially is unchanged.. Sta ble noncalcified subpleural nodule left lower lobe measuring 4 mm. Subsegmental atelectasis in the li ngula. No mediastinal or hilar lymphadenopathy. Calcified right hilar lymph nodes. Cholecystectomy clips. Adrenal glands are normal. Postoperative changes lower cervical spine. CT/CT lung screening [id number] IMPRESSION: LUNG-RADS: 2-Benign Appearance or Behavior FOLLOW UP: 12 Month: Continue annual screening with LDCT
== END 2020-06-04 13:30 | disposition home or self-care (01) ==
LOC: CT 13:30
PROVIDERS: PCP Nurse Practitioner Family; Visit Provider Internal Medicine Critical Care Medicine
DX: Z12.2 Encounter for screening for malignant neoplasm of respiratory organs (principal); Z87.891 Personal history of nicotine dependence
CPT/HCPCS: 71271

== ENCOUNTER → 2020-06-23 07:42 | Outpatient (BNVA) | payer MEDICARE, MEDICAID, SELFPAY | PROVIDERS: PCP Nurse Practitioner Family; Visit Provider Nurse Practitioner Psychiatric/Mental Health | DX: F33.1 Major depressive disorder, recurrent, moderate (principal); Z63.79 Other stressful life events affecting family and household; F17.219 Nicotine dependence, cigarettes, with unspecified nicotine-induced disorders | CPT/HCPCS: 99214 ==

== ENCOUNTER → 2020-07-04 09:27 | Outpatient (BNVA) | payer MEDICARE, MEDICAID, SELFPAY | PROVIDERS: PCP Nurse Practitioner Family; Visit Provider Internal Medicine Critical Care Medicine | DX: J44.9 Chronic obstructive pulmonary disease, unspecified (principal); Z20.822 Contact with and (suspected) exposure to COVID-19 | CPT/HCPCS: 87635 ==

== ENCOUNTER 2020-07-08 08:11 | Outpatient (CLI) | payer MEDICARE, MEDICAID, SELFPAY ==
--- NOTE | 2020-07-08 10:24 | PFTS_ITS ---
Date of Study:07/08/20 Date of Dictation: 07/09/2020 MECHANICS: Forced vital capacity (FVC) is normal Forced expiratory volume in one second (FEV1) is mildly reduced 80% FEV1/FVC is reduced There is significant response to bronchodilator. FLOW VOLUME LOOP: Sloping of expiratory limb suggestive of airway obstruction . LUNG VOLUMES: Total lung capacity (TLC) is normal. Residual volume (RV) is increased suggestive of mild air trapping. DIFFUSING CAPACITY FOR CARBON MONOXIDE: Mildly reduced 78% . INTERPRETATION: The pulmonary function tests are consistent with mild obstructive ventilatory defect. There is significant response to bronchodilators. Lung volumes reflect mild air trapping. Mild reduction in gas transfer. Correlate clinically. MTDD
== END 2020-07-08 08:12 | disposition home or self-care (01) ==
LOC: RT 08:11
PROVIDERS: PCP Nurse Practitioner Family; Visit Provider Internal Medicine Critical Care Medicine
DX: J44.9 Chronic obstructive pulmonary disease, unspecified (principal)
CPT/HCPCS: 94060; 94726; 94729; J7611

== ENCOUNTER 2020-07-18 14:14 | Outpatient (CLI) | payer MEDICARE, MEDICAID, SELFPAY ==
--- NOTE | 2020-07-18 14:20 | MM_ITS ---
WS: [id number] BILATERAL SCREENING DIGITAL MAMMOGRAM WITH CAD HISTORY: SCREENING COMPARISON: 07/02/2019, 05/03/2018, 04/16/2015 02/24/2013 Bilateral CC and MLO views submitted. Computer aided detection analyzed. Breast composition: There are scattered areas of fibroglandular density. No suspicious masses, microc alcifications or architectural distortion. Long-term stability of an asymmetry in the upper-outer kimberlee drant of the LEFT breast. MM/[place] [id number] IMPRESSION: BI-RADS: 2-Benign FOLLOW UP: 1 Year Follow-up
== END 2020-07-18 14:15 | disposition home or self-care (01) ==
LOC: RADSHAW 14:18
PROVIDERS: PCP Nurse Practitioner Family; Visit Provider Nurse Practitioner Family
DX: Z12.31 Encounter for screening mammogram for malignant neoplasm of breast (principal)
CPT/HCPCS: 77067

== ENCOUNTER 2020-08-06 14:22 | Outpatient (CLI) | payer MEDICARE, MEDICAID, SELFPAY ==
--- NOTE | 2020-08-06 | CT_ITS ---
WS: [id number] CT NECK TECHNIQUE: Contrast-enhanced CT of the neck with coronal and sagittal reformatted images. CLINICAL INFORMATION: COUGH COMPARISON: August 25, 2018 DLP: 2885.[address] scans at [facility] use at least one of these dose optimization techniques: automat ed exposure control; mA and/or kV adjustment per patient size (includes targeted exams where dose is matched to clinical indication); or iterative reconstruction. FINDINGS: Parotid glands are normal. Normal submandibular glands. Normal thyroid gland. Small right thyroid nod ule measuring 3.8 mm. Lung apices are well aerated. Paranasal sinuses and mastoid air cells are well aerated. Normal posterior nasopharynx. Normal parapharyngeal fat. No evidence of supraglottic or glottic mass. Subglottic airway is normal. No cervical lymphadenopathy . Straightening of the normal cervical lordosis with anterior interbody cervical fusion C4-C6. CT/CT neck w con* [id number] IMPRESSION: 1. No evidence of supraglottic or glottic mass. 2. No cervical lymphadenopathy. 3. Normal submandibular and parotid glands. 4. Small right thyroid nodule measuring 3.8 mm. 5. Prior postoperative changes ACDF C4-C6.
[2020-08-06 14:54] LABS: Blood Urea Nitrogen 14 mg/dL (8-23)
[2020-08-06] MEDS: iohexol 300 mg/mL 100 mL Btl IV (15:03)
== END 2020-08-06 14:23 | disposition home or self-care (01) ==
PROVIDERS: PCP Nurse Practitioner Family; Visit Provider Specialist
DX: G44.89 Other headache syndrome (principal); J30.1 Allergic rhinitis due to pollen; F17.210 Nicotine dependence, cigarettes, uncomplicated; J37.0 Chronic laryngitis; R05 Cough; K21.00 Gastro-esophageal reflux disease with esophagitis, without bleeding
CPT/HCPCS: 70491; 82565; 84520; Q9967

== ENCOUNTER 2020-09-05 15:33 | Outpatient (CLI) | payer MEDICARE, MEDICAID, SELFPAY ==
--- NOTE | 2020-09-05 15:45 | XR_ITS ---
WS: [id number] Left hip, AP and frog leg views, 09/05/2020 Clinical Data: LEFT HIP PAIN Comparison: Pelvis and left hip, 01/10/2018. Findings: No fractures or dislocations are seen. The left hip joint is intact. The soft tissues are not remarka ble. The adjacent pelvis is normal. XR/XR hip LT 2-3V wo/w pel* [id number] Impression: Negative left hip. Tonnis classification: grade 0: normal radiographs
== END 2020-09-05 15:34 | disposition home or self-care (01) ==
LOC: RAD 15:40
PROVIDERS: PCP Nurse Practitioner Family; Visit Provider Nurse Practitioner Family
DX: M25.552 Pain in left hip (principal)
CPT/HCPCS: 73502

== ENCOUNTER → 2020-09-16 08:25 | Outpatient (BNVA) | payer MEDICARE, MEDICAID, SELFPAY | PROVIDERS: PCP Nurse Practitioner Family; Visit Provider Nurse Practitioner Psychiatric/Mental Health | DX: F33.1 Major depressive disorder, recurrent, moderate (principal); Z63.79 Other stressful life events affecting family and household; F17.219 Nicotine dependence, cigarettes, with unspecified nicotine-induced disorders | CPT/HCPCS: 99214 ==

== ENCOUNTER → 2020-12-09 07:38 | Outpatient (BNVA) | payer MEDICARE, MEDICAID, SELFPAY | PROVIDERS: PCP Nurse Practitioner Family; Visit Provider Nurse Practitioner Psychiatric/Mental Health | DX: F33.1 Major depressive disorder, recurrent, moderate (principal); Z63.79 Other stressful life events affecting family and household; F17.219 Nicotine dependence, cigarettes, with unspecified nicotine-induced disorders | CPT/HCPCS: 99214 ==

== ENCOUNTER 2020-12-16 12:21 | Outpatient (RCR) | payer MEDICARE, MEDICAID, SELFPAY | END 2020-12-23 23:59 | disposition home or self-care (01) | LOC: SPT 12:21 | PROVIDERS: PCP Nurse Practitioner Family; Referring Provider Orthopaedic Surgery; Visit Provider Orthopaedic Surgery | DX: M25.552 Pain in left hip (principal) | CPT/HCPCS: 97161 ==

== ENCOUNTER 2020-12-24 06:00 | Outpatient (RCR) | payer MEDICARE, MEDICAID, SELFPAY | END 2021-01-22 23:59 | disposition home or self-care (01) | LOC: SPT 06:00 | PROVIDERS: PCP Nurse Practitioner Family; Referring Provider Orthopaedic Surgery; Visit Provider Orthopaedic Surgery | DX: M25.552 Pain in left hip (principal) | CPT/HCPCS: 97110 ==

== ENCOUNTER → 2021-01-01 08:01 | Outpatient (BNVA) | payer MEDICARE, MEDICAID, SELFPAY | PROVIDERS: PCP Nurse Practitioner Family; Visit Provider Nurse Practitioner Psychiatric/Mental Health | DX: F33.1 Major depressive disorder, recurrent, moderate (principal); F17.219 Nicotine dependence, cigarettes, with unspecified nicotine-induced disorders; Z63.79 Other stressful life events affecting family and household | CPT/HCPCS: 99214 ==

== ENCOUNTER 2021-01-23 06:00 | Outpatient (RCR) | payer MEDICARE, MEDICAID, SELFPAY | END 2021-02-22 23:59 | disposition home or self-care (01) | LOC: SPT 06:00 | PROVIDERS: PCP Nurse Practitioner Family; Referring Provider Orthopaedic Surgery; Visit Provider Orthopaedic Surgery | DX: M25.552 Pain in left hip (principal) | CPT/HCPCS: 97110 ==

== ENCOUNTER → 2021-01-28 13:58 | Outpatient (BNVA) | payer MEDICARE, MEDICAID, SELFPAY | PROVIDERS: PCP Nurse Practitioner Family; Visit Provider Podiatrist Foot & Ankle Surgery | DX: M25.572 Pain in left ankle and joints of left foot (principal); M25.571 Pain in right ankle and joints of right foot | CPT/HCPCS: 73630 ==

== ENCOUNTER 2021-01-28 15:46 | Outpatient (CLI) | payer MEDICARE, MEDICAID, SELFPAY | END 2021-01-28 15:47 | disposition home or self-care (01) | LOC: SPT 15:47 | PROVIDERS: PCP Nurse Practitioner Family; Visit Provider Podiatrist Foot & Ankle Surgery | DX: Z46.89 Encounter for fitting and adjustment of other specified devices (principal); M25.552 Pain in left hip | CPT/HCPCS: 97760; L4361 ==

== ENCOUNTER → 2021-01-29 08:18 | Outpatient (BNVA) | payer MEDICARE, MEDICAID, SELFPAY | PROVIDERS: PCP Nurse Practitioner Family; Visit Provider Nurse Practitioner Psychiatric/Mental Health | DX: F33.1 Major depressive disorder, recurrent, moderate (principal); Z63.79 Other stressful life events affecting family and household; F17.219 Nicotine dependence, cigarettes, with unspecified nicotine-induced disorders | CPT/HCPCS: 99214 ==

== ENCOUNTER 2021-02-13 10:36 | Emergency (ER) | payer MEDICARE, MEDICAID, SELFPAY ==
[2021-02-13] VITALS (10 sets, daily range): BP systolic 99–128; BP diastolic 51–75; PULSE 78–88; RESP 17–19; TEMP 37.2–37.6; O2SAT 87–99; BMI 32.5
--- NOTE | 2021-02-13 11:06 | W.ED.SOB ---
HPI - SOB/Dyspnea General: Chief Complaint: Shortness of Breath/Dyspnea Stated Complaint: Low O2, SOB, cough, fever Time Seen by Provider: 02/13/21 11:06 History of Present Illness: HPI Narrative: Ms. Frias is a 60-year-old lady with significant past medical history of hypertension, hyperlipidemia, COPD who presents the emergency department due to respiratory symptoms. She reports onset of symptoms about 2 days ago. She has had moderate intensity symptoms which are worsening. She has had cough, congestion, shortness of breath. She has had associated headache, congestion, nausea, and vomiting. She was seen at urgent care yesterday and tested for Covid. At that time she was started on doxycycline and steroids however continues to worsen. She has tried home treatments without significant relief. She is vaccinated against Covid but has not received her flu shot. No other specific exacerbating, alleviating, or provoking factors identified. Review of Systems General: Reports: 10 or more systems reviewed and unremarkable except in HPI and below PFSH ED PFSH: Medical History Arthralgia of multiple joints Benign essential HTN COPD (chronic obstructive pulmonary disease) Dyslipidemia Dysphagia, idiopathic GERD (gastroesophageal reflux disease) History of malignant melanoma Major depressive disorder, recurrent, moderate Other intervertebral disc degeneration, thoracolumbar region Psychiatric care Stress due to illness of family member Surgical History H/O neck surgery H/O: hysterectomy S/P cholecystectomy Status post carpal tunnel release Family History Other Anesthesia complication CAD (coronary artery disease) Cancer Stroke Social History Quit status (tobacco): has quit using tobacco Year quit tobacco: 2019 - 1PPD x 40 Years Second hand smoke exposure: Yes Alcohol intake: never Desire information about alcohol rehabilitation?: No Counseling given: No Desire information about substance/drug rehabilitation?: No Counseling given: No Lives independently: Yes Household members: significant other Marital status: Life Partner Number of children: 3 service: No Current occupational status: disabled History of recent travel: No Current gender identity: Female Physical Exam Narrative: EXAM NARRATIVE: GENERAL/CONSTITUTIONAL -mildly ill-appearing. No acute distress Eyes - PERRL, no conjunctival injection ENMT - Atraumatic external nose and ears. Nasal congestion present. Moist mucous membranes NECK - supple. trachea midline CARDIOVASCULAR - regular rate and rhythm. RESPIRATORY -diminished to auscultation bilaterally, coarseness at the bases, minimal end expiratory wheezes. ABDOMEN/GI - Nontender/Nondistended. MSK - Extremities without obvious deformity or tenderness to palpation SKIN - Warm, Dry NEURO - alert and appropriately oriented. Moves all extremities equally. Course ED course: - Patient was seen and evaluated by me at bedside - Patient placed on cardiac monitors, IV access obtained - Initial evaluation notable for mild ill, no distress -Symptom treatment ordered - Labs notable for no leukocytosis, procalcitonin negative. Delta troponin negative. Mild dehydration. - Imaging notable for no lobar consolidation - Upon serial reexamination after treatment the patient was improved - Based on patient history, evaluation, labs, and imaging as interpreted the most likely cause of the patient's condition is viral illness with COPD exacerbation. Patient felt improved after treatment and given that treatment was restarted yesterday patient has not failed outpatient therapy. She was comfortable with discharge. - The results of ED evaluation were discussed with the patient including prescriptions and/or symptomatic cares (if applicable) including appropriate and responsible use, followup plan, and return precautions. The patient verbalized understanding and felt safe for discharge. - Patient discharged in satisfactory condition. Vital Signs: Vital signs: Vital Signs Temperature 99.1 F 02/13/21 17:01 Pulse Rate 78 02/13/21 17:01 Respiratory Rate 18 02/13/21 17:01 Blood Pressure 112/65 02/13/21 17:01 Pulse Oximetry 96 02/13/21 17:01 MDM - SOB/Dyspnea Medical Records: Attestation: I reviewed the patient's medical records. Lab Data: Attestation: I reviewed the patient's lab results. Labs: Lab Results 02/13/21 02/13/21 02/13/21 11:49 12:24 12:24 WBC 7.9 10^3/uL 10^3/ uL (4.0-10.0) RBC 5.37 10^6/uL H 10 ^6/uL (4.1-5.3) Hgb 15.5 g/dL H g/dL (11.5-15.3) Hct 49.2 % H % (37.0-47.0) MCV 91.6 fl fl (81-99) MCH 28.9 pg pg (28.0-34.0) MCHC 31.5 g/dL g/dL (30.0-36.0) RDW 13.0 % % (12.1-15.1) Plt Count 209 10^3/cmm 10^3 /cmm (130-400) MPV 10.9 fL H fL (7.4-10.4) Neut % (Auto) 73.2 % % Lymph % (Auto) 18.2 % % Simpson % (Auto) 7.4 % % Eos % (Auto) 0.3 % % Baso % (Auto) 0.5 % % Neut # (Auto) 5.75 10^3/uL 10^3 /uL (1.8-7.7) Lymph # (Auto) 1.4 10^3/uL 10^3/ uL (0.8-4.8) Simpson # (Auto) 0.6 10^3/uL 10^3/ uL (0.2-0.9) Eos # (Auto) 0.0 10^3/uL 10^3/ uL (0.0-0.8) Baso # (Auto) 0.0 10^3/uL 10^3/ uL (0.0-0.1) Nucleated RBC % (a uto) 0 % % Nucleated RBCs # 0.0 /100WBC /100W BC Sodium 133 mmol/L L mmol /L (136-145) Potassium 4.2 mmol/L mmol/L (3.5-5.1) Chloride 96 mmol/L L mmol/ L (98-107) Carbon Dioxide 25 mmol/L mmol/L (22-29) Anion Gap 16.2 (5-19) BUN 15 mg/dL mg/dL (8-23) Creatinine 0.8 mg/dL mg/dL (0.5-0.9) GFR Calculation 72.9 mL/min L mL/ min (90-130) Glucose 99 mg/dL mg/dL (65-115) Calculated Osmolal ity 277 mOsm/kg L mOs m/kg (285-295) Lactic Acid Calcium 9.0 mg/dL mg/dL (8.5-10.5) Total Bilirubin 0.6 mg/dL mg/dL (0.15-1.2) AST 32 U/L U/L (0-32) ALT 48 U/L H U/L (0-33) Alkaline Phosphata se 86 IU/L IU/L (35-105) Troponin T Baselin e Troponin T 120 Min twenty[place]nine [place] Delta Troponin T C-Reactive Protein 4.5 mg/L mg/L (0.0-4.9) NT-Pro-B Natriuret Pep 92 pg/mL pg/mL (0-125) Total Protein 7.4 g/dL g/dL (6.6-8.7) Albumin 4.5 g/dL g/dL (3.5-5.2) Globulin 2.9 g/dL g/dL (1.3-4.6) Procalcitonin 0.09 ng/mL ng/mL (0-0.5) Influenza Type A A g Negative (Negative) Influenza Type B A g Negative (Negative) 02/13/21 02/13/21 02/13/21 12:24 12:24 14:35 WBC RBC Hgb Hct MCV MCH MCHC RDW Plt Count MPV Neut % (Auto) Lymph % (Auto) Simpson % (Auto) Eos % (Auto) Baso % (Auto) Neut # (Auto) Lymph # (Auto) Simpson # (Auto) Eos # (Auto) Baso # (Auto) Nucleated RBC % (a uto) Nucleated RBCs # Sodium Potassium Chloride Carbon Dioxide Anion Gap BUN Creatinine GFR Calculation Glucose Calculated Osmolal ity Lactic Acid 0.8 mmol/L mmol/L (0.5-2.2) Calcium Total Bilirubin AST ALT Alkaline Phosphata se Troponin T Baselin e 11 ng/L H ng/L (0-10) Troponin T 120 Min [place] 9.67 ng/L ng/L (0-10) Delta Troponin T -1.33 ABS# L ABS# (0-10) C-Reactive Protein NT-Pro-B Natriuret Pep Total Protein Albumin Globulin Procalcitonin Influenza Type A A g Influenza Type B A g EKG Data^: EKG 1: Attestation: I personally reviewed and interpreted this EKG as follows: EKG Interpretation Date: 02/13/21 EKG interpretation time: 12:14 Interpretation: Twelve-lead EKG shows a regular rhythm at a rate of 84. SC interval 158. QRS duration 88. QTc 379. Normal [place]. . Interpretation: Sinus rhythm. . Discharge Plan Discharge Patient Disposition: Home Clinical Impression: Acute exacerbation of chronic obstructive airways disease Condition: Stable Prescriptions: No Action ipratropium bromide 42 mcg (0.06 %) spray,non-aerosol 2 spray intranasal TID RF: 0 bupropion HCl 75 mg tablet 75 mg PO .morning Qty: 30 RF: 3 diazepam [Valium] 2 mg tablet 2 mg PO BID PRN (Reason: anxiety) Qty: 60 RF: 3 prednisone 10 mg tablet 10 mg PO DAILY 12 Days Qty: 42 RF: 0 (DME) Cam boot to right See Rx Instructions .Route .MEDSUPPLY Qty: 1 RF: 0 (DME) Custom molded orthotics See Rx Instructions .Route .MEDSUPPLY Qty: 1 RF: 0 losartan 25 mg tablet 25 mg PO DAILY RF: 0 ketoconazole 2 % cream 1 applic TOPICAL BID Qty: 60 RF: 3 Trelegy Ellipta 200-62.5-25 mcg blister with device 1 inh inhalation DAILY Qty: 60 RF: 3 naproxen 500 mg tablet 500 mg PO BID Qty: 60 RF: 0 rosuvastatin [Crestor] 20 mg tablet 20 mg PO QDAY Qty: 90 RF: 1 omeprazole 10 mg capsule,delayed release(DR/EC) See Rx Instructions .ROUTE .COMPLEX Qty: 120 RF: 3 albuterol sulfate 2.5 mg /3 mL (0.083 %) solution for nebulization See Rx Instructions .ROUTE .COMPLEX Qty: 30 RF: 11 albuterol sulfate [Ventolin HFA] 90 mcg/actuation HFA aerosol inhaler See Rx Instructions .ROUTE .COMPLEX Qty: 18 RF: 3 amlodipine 10 mg tablet 10 mg PO DAILY Qty: 90 RF: 2 Discharge Orders: Discharge ED (Routine); Ordered 02/13/21 Ordered By: Jeferson Saini Other Ambulatory Orders: DME: Oxygen (Order) Location: None Selected Ordered By: Jeferson Saini Referrals: Johnna Claire NP [Primary Care Provider] - Discharge Diet: Usual diet Discharge Activity: Resume usual activity Patient Instructions: COPD (Chronic Obstructive Pulmonary Disease) (ED) Activity Restrictions/Additional Instructions: Thank you for visiting the emergency department. You were seen and evaluated for shortness of breath. The exact cause of your symptoms is unclear though is likely related to COPD exacerbation with or without underlying component of environmental exposure or viral infection. The previously prescribed treatment of steroids and doxycycline is appropriate. Please continue to take this as prescribed. Additionally please use your inhalers scheduled as previously discussed. Please follow-up with your primary care provider Please return to the emergency department for worsening symptoms, chest pain, inability to tolerate oral intake, or anything else that you are concerned about and feel needs emergency department evaluation. Coding Level of Care Code ED Swing Manager for Jessica Prado
--- NOTE | 2021-02-13 11:11 | XR_ITS ---
WS: [id number] Portable AP upright chest, 02/13/2021 Clinical Data: cough Comparison: PA and lateral chest, 07/26/2019. Findings: No nodules, masses or effusions are seen. The heart is normal. The pulmonary vascularity is not increased. No pneumonia or pneumothorax is seen. XR/XR chest 1V portable [id number] Impression: Negative chest.
--- NOTE | 2021-02-13 11:12 | ECG_ITS ---
[facility] Test Date: 2021-02-13 Pat Name: Katiuska Mojica Department: Room: Gender: Female Environmental Health Officer: : 1960 Requested By: Jeferson Saini Order Number: [id number] Art MD: Chago Coyne M.D. Measurements Intervals [place] Rate: 84 P: 63 CA: 158 QRS: 59 QRSD: 88 T: 58 QT: 338 QTc: 400 Interpretive Statements SINUS RHYTHM POSSIBLE RIGHT VENTRICULAR CONDUCTION DELAY [RSR (QR) IN V1/V2] Compared to ECG 06/29/2019 04:55:09 No significant changes Electronically Signed On 02-13-2021 22:40:50 CDT by Chago Coyne M.D. [id number]
[2021-02-13] MEDS: ipratropium-albuterol 3 mL Neb INHALATION (11:15)
[2021-02-13 12:36] LABS: Basophils % 0.5 %; Eosinophils % 0.3 %; Hematocrit 49.2 % (37.0-47.0); Hemoglobin 15.5 g/dL (11.5-15.3); Lymphocytes # 1.4 10^3/uL (0.8-4.8); Lymphocytes % 18.2 %; Mean Corpuscular HGB Conc 31.5 g/dL (30.0-36.0); Mean Corpuscular Hemoglobin 28.9 pg (28.0-34.0); Mean Corpuscular Volume 91.6 fl (81-99); Mean Platelet Volume 10.9 fL (7.4-10.4); Monocytes # 0.6 10^3/uL (0.2-0.9); Monocytes % 7.4 %; Neutrophils # 5.75 10^3/uL (1.8-7.7); Neutrophils % 73.2 %; Nucleated Red Blood Cells % 0 %; Platelet Count 209 10^3/cmm (130-400); Red Blood Count 5.37 10^6/uL (4.1-5.3); White Blood Count 7.9 10^3/uL (4.0-10.0)
[2021-02-13] MEDS: sodium chloride 0.9% 1,000 ML 999 ML IV (12:40)
[2021-02-13] MEDS: ketorolac 30 mg/mL INJ 15 MG IVP (12:40)
[2021-02-13 13:14] LABS: Troponin(5th) Baseline 11 ng/L (0-10)
[2021-02-13 13:17] LABS: Influenza A by IFA Negative (Negative); Influenza B by IFA Negative (Negative)
[2021-02-13 13:19] LABS: Alanine Aminotransferase 48 U/L (0-33); Albumin Level 4.5 g/dL (3.5-5.2); Alkaline Phosphatase 86 IU/L (35-105); Anion Gap 16.2 (5-19); Aspartate Amino Transferase 32 U/L (0-32); Blood Urea Nitrogen 15 mg/dL (8-23); C Reactive Protein 4.5 mg/L (0.0-4.9); Carbon Dioxide 25 mmol/L (22-29); Chloride 96 mmol/L (98-107); Creatinine Clr Calc Pharmacy 78.4503; Globulin 2.9 g/dL (1.3-4.6); Glomerular Filtration Rate 72.9 mL/min (90-130); Glucose 99 mg/dL (65-115); NT Pro B Type Natriuretic Pept 92 pg/mL (0-125); Osmolality Calculated 277 mOsm/kg (285-295); Potassium 4.2 mmol/L (3.5-5.1); Sodium 133 mmol/L (136-145); Total Bilirubin 0.6 mg/dL (0.15-1.2); Total Protein 7.4 g/dL (6.6-8.7)
[2021-02-13 13:39] LABS: Lactic Sepsis W/Reflex 0.8 mmol/L (0.5-2.2)
[2021-02-13 13:53] LABS: Procalcitonin 0.09 ng/mL (0-0.5)
[2021-02-13 15:02] LABS: Troponin 5 2HR 9.67 ng/L (0-10); Troponin 5 2HR Delta -1.33 ABS# (0-10)
== END 2021-02-13 17:03 | disposition home or self-care (01) ==
PROVIDERS: Emergency Provider Emergency Medicine; PCP Nurse Practitioner Family
DX: J44.1 Chronic obstructive pulmonary disease with (acute) exacerbation (principal); I10 Essential (primary) hypertension; E78.5 Hyperlipidemia, unspecified; Z87.891 Personal history of nicotine dependence; Z85.820 Personal history of malignant melanoma of skin
CPT/HCPCS: 71045; 80053; 83605; 83880; 84145; 84484; 85025; 86140; 87804; 93005; 94640; 96361; 96374; 99284; J1885; J7030

== ENCOUNTER → 2021-03-05 07:43 | Outpatient (BNVA) | payer MEDICARE, MEDICAID, SELFPAY | PROVIDERS: PCP Nurse Practitioner Family; Visit Provider Nurse Practitioner Psychiatric/Mental Health | DX: F33.1 Major depressive disorder, recurrent, moderate (principal); Z63.79 Other stressful life events affecting family and household; F17.219 Nicotine dependence, cigarettes, with unspecified nicotine-induced disorders | CPT/HCPCS: 99214 ==

== ENCOUNTER 2021-03-30 15:32 | Outpatient (CLI) | payer MEDICARE, MEDICAID, SELFPAY | END 2021-03-30 15:33 | disposition home or self-care (01) | LOC: SPT 15:33 | PROVIDERS: PCP Nurse Practitioner Family; Visit Provider Podiatrist Foot & Ankle Surgery | DX: Z46.89 Encounter for fitting and adjustment of other specified devices (principal); M76.70 Peroneal tendinitis, unspecified leg; M72.2 Plantar fascial fibromatosis | CPT/HCPCS: 97760; 99214; L3030 ==

== ENCOUNTER 2021-03-31 06:00 | Outpatient (RCR) | payer MEDICARE, MEDICAID, SELFPAY | END 2021-04-24 23:59 | disposition home or self-care (01) | LOC: SPT 06:00 | PROVIDERS: PCP Nurse Practitioner Family; Referring Provider Podiatrist Foot & Ankle Surgery; Visit Provider Podiatrist Foot & Ankle Surgery | DX: M72.2 Plantar fascial fibromatosis (principal); M76.71 Peroneal tendinitis, right leg | CPT/HCPCS: 97110; 97140; 97161 ==

== ENCOUNTER 2021-04-25 06:00 | Outpatient (RCR) | payer MEDICARE, MEDICAID, SELFPAY | END 2021-05-25 23:59 | disposition home or self-care (01) | LOC: SPT 06:00 | PROVIDERS: PCP Nurse Practitioner Family; Referring Provider Podiatrist Foot & Ankle Surgery; Visit Provider Podiatrist Foot & Ankle Surgery | DX: M72.2 Plantar fascial fibromatosis (principal); M76.71 Peroneal tendinitis, right leg | CPT/HCPCS: 97110; 97140 ==

== ENCOUNTER → 2021-05-04 07:52 | Outpatient (BNVA) | payer MEDICARE, MEDICAID, SELFPAY | PROVIDERS: PCP Nurse Practitioner Family; Visit Provider Nurse Practitioner Psychiatric/Mental Health | DX: F33.1 Major depressive disorder, recurrent, moderate (principal); Z63.79 Other stressful life events affecting family and household; F17.219 Nicotine dependence, cigarettes, with unspecified nicotine-induced disorders | CPT/HCPCS: 99214 ==

== ENCOUNTER 2021-05-26 06:00 | Outpatient (RCR) | payer MEDICARE, MEDICAID, SELFPAY | END 2021-06-22 23:59 | disposition home or self-care (01) | LOC: SPT 06:00 | PROVIDERS: PCP Nurse Practitioner Family; Referring Provider Podiatrist Foot & Ankle Surgery; Visit Provider Podiatrist Foot & Ankle Surgery | DX: M72.2 Plantar fascial fibromatosis (principal) | CPT/HCPCS: 97110 ==

== ENCOUNTER 2021-06-04 09:41 | Outpatient (CLI) | payer MEDICARE, MEDICAID, SELFPAY ==
--- NOTE | 2021-06-04 09:53 | USCV_ITS ---
Katiuska Mojica Age: 60 Gender: F : 1960 Exam Date: 06/04/2021 10:09 Ordering Phys: Johnna Claire NP Technologist: BLAKE [place] [facility] [place] LEG PAIN HISTORY: Lower extremity pain. PROCEDURES: Venous duplex imaging was performed in only the left lower extremity. The following venous structures were evaluated: common femoral vein, profunda vein, proximal portion of the greater saphenous vein, superficial femoral vein, and the popliteal vein. In addition, the posterior tibial and peroneal trunk were evaluated. FINDINGS: Normal 2-D Doppler and augmentation and compressibility throughout the lower extremity venous structures. Additional imaging through the proximal calf veins also reveals no thrombus. Limited evaluation of the greater saphenous vein is patent with no thrombus.. CONCLUSIONS No evidence of left lower extremity DVT. Eugene Steel MD (Electronically Signed) Final Date: 04 June 2021 16:19 S
== END 2021-06-04 09:42 | disposition home or self-care (01) ==
LOC: RAD 09:47
PROVIDERS: PCP Nurse Practitioner Family; Visit Provider Nurse Practitioner Family
DX: M79.605 Pain in left leg (principal)
CPT/HCPCS: 93971

== ENCOUNTER → 2021-06-23 13:05 | Outpatient (BNVA) | payer MEDICARE, MEDICAID, SELFPAY | PROVIDERS: PCP Nurse Practitioner Family; Visit Provider Internal Medicine Critical Care Medicine | DX: J44.9 Chronic obstructive pulmonary disease, unspecified (principal); Z87.891 Personal history of nicotine dependence | CPT/HCPCS: 99214 ==

== ENCOUNTER → 2021-09-07 10:55 | Outpatient (BNVA) | payer MEDICARE, MEDICAID, SELFPAY | PROVIDERS: PCP Nurse Practitioner Family; Visit Provider Nurse Practitioner Psychiatric/Mental Health | DX: F33.1 Major depressive disorder, recurrent, moderate (principal); Z63.79 Other stressful life events affecting family and household; F17.219 Nicotine dependence, cigarettes, with unspecified nicotine-induced disorders | CPT/HCPCS: 99214 ==

== ENCOUNTER → 2021-09-08 13:05 | Outpatient (BNVA) | payer MEDICARE, MEDICAID, SELFPAY | PROVIDERS: PCP Nurse Practitioner Family; Visit Provider Podiatrist Foot & Ankle Surgery | DX: M76.71 Peroneal tendinitis, right leg (principal) | CPT/HCPCS: 99213 ==

== ENCOUNTER 2021-09-11 11:54 | Outpatient (CLI) | payer MEDICARE, MEDICAID, SELFPAY ==
--- NOTE | 2021-09-11 12:04 | MM_ITS ---
WS: [id number] BILATERAL SCREENING DIGITAL BREAST TOMOSYNTHESIS MAMMOGRAM WITH CAD HISTORY: SCREENING COMPARISON: 07/18/2020, 07/02/2019 and 04/16/2015 Bilateral CC and MLO views with tomosynthesis and synthetic mammography submitted. Computer aided det ection analyzed. Breast composition: There are scattered areas of fibroglandular density. No suspicious masses, microc alcifications or architectural distortion. Focal asymmetry with long-term stability upper outer quadr ant LEFT breast. MM/[place] [id number] IMPRESSION: BI-RADS: 2-Benign FOLLOW UP: 1 Year Follow-up
== END 2021-09-11 11:55 | disposition home or self-care (01) ==
LOC: RAD 11:56
PROVIDERS: PCP Nurse Practitioner Family; Visit Provider Nurse Practitioner Family
DX: Z12.31 Encounter for screening mammogram for malignant neoplasm of breast (principal)
CPT/HCPCS: 77063; 77067

== ENCOUNTER → 2021-10-02 09:37 | Outpatient (BNVA) | payer MEDICARE, MEDICAID, SELFPAY | PROVIDERS: PCP Nurse Practitioner Family; Visit Provider Nurse Practitioner Psychiatric/Mental Health | DX: F33.1 Major depressive disorder, recurrent, moderate (principal); F17.219 Nicotine dependence, cigarettes, with unspecified nicotine-induced disorders; Z63.79 Other stressful life events affecting family and household | CPT/HCPCS: 99214 ==

== ENCOUNTER → 2021-10-08 10:46 | Outpatient (BNVA) | payer MEDICARE, MEDICAID, SELFPAY | PROVIDERS: PCP Nurse Practitioner Family; Visit Provider Nurse Practitioner Psychiatric/Mental Health | DX: F33.1 Major depressive disorder, recurrent, moderate (principal); Z63.79 Other stressful life events affecting family and household; F17.219 Nicotine dependence, cigarettes, with unspecified nicotine-induced disorders | CPT/HCPCS: 99214 ==

== ENCOUNTER → 2021-10-28 08:44 | Outpatient (BNVA) | payer MEDICARE, MEDICAID, SELFPAY | PROVIDERS: PCP Nurse Practitioner Family; Visit Provider Internal Medicine Critical Care Medicine | DX: J44.9 Chronic obstructive pulmonary disease, unspecified (principal); J30.9 Allergic rhinitis, unspecified; G47.33 Obstructive sleep apnea (adult) (pediatric); Z87.891 Personal history of nicotine dependence; K21.9 Gastro-esophageal reflux disease without esophagitis; E78.5 Hyperlipidemia, unspecified; I10 Essential (primary) hypertension | CPT/HCPCS: 99214 ==

== ENCOUNTER → 2021-12-09 09:19 | Outpatient (BNVA) | payer MEDICARE, MEDICAID, SELFPAY | PROVIDERS: PCP Nurse Practitioner Family; Visit Provider Surgery | DX: R19.5 Other fecal abnormalities (principal); R10.9 Unspecified abdominal pain | CPT/HCPCS: 99203 ==

== ENCOUNTER 2021-12-15 12:28 | Outpatient (CLI) | payer MEDICARE, MEDICAID, SELFPAY ==
--- NOTE | 2021-12-15 12:45 | CT_ITS ---
WS: [id number] LDCT LUNG CANCER SCREENING TECHNIQUE: Noncontrast CT of the chest with coronal and sagittal reformatted images. CLINICAL INFORMATION: Lung cancer screenin COMPARISON: CT June 04, 2020 DLP: 78.41 mGy.cm DIvol: Mean CTDIvol: 1.60 (mGy) All CT scans at [facility] use at least one of these dose optimization techniques: automat ed exposure control; mA and/or kV adjustment per patient size (includes targeted exams where dose is matched to clinical indication); or iterative reconstruction. FINDINGS: Stable noncalcified 3 mm subpleural nodule LEFT lower lobe. Stable 5 mm subpleural nodule along the R IGHT fissure. A few calcified granulomas. Slight hazy atelectasis in the lung bases. Subsegmental ate lectasis in the lingula. No mediastinal or hilar lymphadenopathy. Normal caliber thoracic aorta. Mild aortic calcification. Normal GE junction. Splenic granulomas. Prior cholecystectomy. No axillary lymphadenopathy. Hypertrop hic changes thoracic spine. CT/CT lung screening [id number] IMPRESSION: LUNG-RADS: 2-Benign Appearance or Behavior FOLLOW UP: 12 Month: Continue annual screening with LDCT
== END 2021-12-15 12:29 | disposition home or self-care (01) ==
LOC: RAD 12:29
PROVIDERS: PCP Nurse Practitioner Family; Visit Provider Internal Medicine Critical Care Medicine
DX: Z12.2 Encounter for screening for malignant neoplasm of respiratory organs (principal); F17.219 Nicotine dependence, cigarettes, with unspecified nicotine-induced disorders
CPT/HCPCS: 71271

== ENCOUNTER 2022-02-19 07:42 | Day surgery (SDC) | payer MEDICARE, MEDICAID, SELFPAY ==
--- NOTE | 2022-02-19 07:54 | P.HP_ITS ---
Same Day Surgery H&P Indication for Procedure/HPI DATE OF PROCEDURE: February 19, 2022 CHIEF COMPLAINT/INDICATIONFOR SURGICAL PROCEDURE: Abdominal pain PREOP DIAGNOSIS: Change in stool caliber and abdominal pain PLANNED PROCEDURE: Operation Date: 02/19/22 09:00 Proposed Procedures p Colonoscopy 44235,K92.1(Not Applicable) - Thiago Sun MD 12/09/2021 This is a pleasant 60 years old female patient well-known with history of chronic constipation and she reports no history of colon cancer that she is aware of.? Had gallbladder surgery via right paramedian incision and she reports sharp pain which gets worse with food.? Patient undergone a CT scan at outside facility that showed splenic granuloma and a large burden of stool in her colon, last colonoscopy was done back in 2018 as patient describes was reported as normal.? Patient also reports change in the stool caliber and subsequently patient was referred to my practice for consideration of colonoscopy.? Also patient reports blood in her stool. Interim history 02/19/2022 Patient comes today for colonoscopy for diagnostic purposes. ROS All systems have been reviewed negative except as for the above or per problem list. Medications/Allergies* Home Medications Medication Instructions Recorded Confirmed Type duloxetine 30 mg capsule,delayed 30 mg PO DAILY 02/17/22 02/17/22 History release ibuprofen 600 mg tablet 600 mg PO BID 02/17/22 02/17/22 History omeprazole 10 mg capsule,delayed 20 mg PO BID 02/17/22 02/17/22 History release Allergies/Adverse Reactions Allergy/AdvReac Type Severity Reaction Status Date / Time codeine Allergy Severe ALGY-Anaphy Verified 02/19/22 08:39 laxis fentanyl Allergy Severe ADR-Confusi Verified 02/19/22 08:39 on morphine Allergy Severe ADR-Nausea Verified 02/19/22 08:39 acetaminophen [From Vicodin] Allergy ADR-Nausea Verified 02/19/22 08:39 hydrocodone [From Vicodin] Allergy ADR-Nausea Verified 02/19/22 08:39 oxycodone Allergy ADR-Nausea Verified 02/19/22 08:39 tramadol [From Ultram] Allergy ADR-Nausea Verified 02/19/22 08:39 Pertinent History/Comorbid Conditions* Medical History (Updated 01/04/22 @ 14:11 by Maricruz Spencer, [facility]) Arthralgia of multiple joints Benign essential HTN COPD (chronic obstructive pulmonary disease) Dyslipidemia Dysphagia, idiopathic GERD (gastroesophageal reflux disease) History of malignant melanoma Major depressive disorder, recurrent, moderate with anxious distress Other intervertebral disc degeneration, thoracolumbar region Psychiatric care Surgical History (Updated 05/15/19 @ 11:18 by Kia Dave DO) H/O neck surgery H/O: hysterectomy S/P cholecystectomy Status post carpal tunnel release Family History (Updated 05/11/19 @ 13:06 by Christy Rivera LPN) CAD (coronary artery disease) Anesthesia complication Cancer Stroke Social History Smoking and tobacco status: former smoker Quit status (tobacco): has quit using tobacco Year quit tobacco: 2019 - 1PPD x 40 Years Second hand smoke exposure: Yes Alcohol intake: never Desire information about alcohol rehabilitation?: No Counseling given: No Desire information about substance/drug rehabilitation?: No Counseling given: No Lives independently: Yes Household members: significant other Marital status: Life Partner Number of children: 3 service: No Current occupational status: disabled History of recent travel: No Current gender identity: Female Pertinent Exam Findings alert, oriented x 3, regular rate & rhythm and procedure specific exam findings (Abdominal exam nontender nondistended soft) Recommendations Surgery/Procedure today (Colonoscopy with possible biopsy) Coding Level of Care Code Acute Dials Supervisor for Jessica Prado
--- NOTE | 2022-02-19 08:16 | ANES.PREANE2 ---
Pre-Anesthetic Assessment Height/Weight: Height 1.63 m Weight 79.379 kg Preop Diagnosis: Change in stool caliber and abdominal pain Operation Date: 02/19/22 09:00 Proposed Procedures p Colonoscopy 36176,K92.1(Not Applicable) - Thiago Sun MD Was Beta Emy taken within 24 hours: N/A Was Clonidine taken within 24 hours: N/A Last intake: Intake Last Liquid Date 02/18/22 Last Liquid Time 20:00 Last Solid Date 02/17/22 Last Solid Time 16:00 Social Tobacco and No alcohol 0.5 pack(s) per day Exam alert, oriented x 3, clear to auscultation bilaterally and regular rate & rhythm Airway Submandibular: within normal limits Cervical ROM: within normal limits Mallampati: Class II Dentition: chipped Comments: Comments: missing Pulmonary Asthma, Chronic Obstructive Pulmonary Disease, Exertional Dyspnea and Sleep Apnea CV/HEM Hypertension None reported Hepatic None reported GI Gastroesophageal Reflux Disease Metabolic Hyperlipidemia Musc/skel Fibromyalgia, Lower Back Pain and Osteoarthritis/DJD Neuropsych Anxiety and Headache Anesthetic Plan ASA status: 3 Anesthesia: MAC Risk of > 500 ml blood loss (7ml/kg in children): No Medications/Allergies Home Medications Medication Instructions Recorded Confirmed Last Taken Type rosuvastatin 20 mg tablet (Crestor) 20 mg PO QDAY #90 tabs 01/14/20 02/17/22 Unknown Rx Custom molded orthotics #1 ea 01/28/21 02/16/22 Unknown Rx amlodipine 10 mg tablet 10 mg PO DAILY #90 tabs 03/25/21 02/17/22 1 Day Ago Rx ~02/18/22 losartan 50 mg tablet 100 mg PO DAILY #180 tabs 04/27/21 02/17/22 02/17/22 Rx albuterol sulfate 2.5 mg/3 mL See Rx Instructions .Route 06/23/21 02/17/22 1 Day Ago Rx (0.083 %) solution for nebulization .COMPLEX #30 vials ~02/18/22 fluticasone fur. 200 mcg-umeclid 1 inh inhalation DAILY #60 ea 10/09/21 02/17/22 02/17/22 Rx 62.5 mcg-vilant 25 mcg inhalat.powder (Trelegy Ellipta) albuterol sulfate 90 mcg/actuation 2 puff inhalation Q6H PRN 11/09/21 02/17/22 1 Day Ago Rx aerosol inhaler shortness of breath or wheezing 30 ~02/18/22 days #8.5 grams diazepam 5 mg tablet (Valium) 5 mg PO BID PRN severe anxiety #60 12/04/21 02/17/22 02/19/22 Rx tabs peg 3350-electrolytes 236 240 ml PO Q10M #4,000 mL 12/09/21 02/17/22 Unknown Rx gram-22.74 gram-6.74 gram-5.86 gram solution (Golytely) bupropion HCl 75 mg tablet 75 mg PO .morning #30 tabs 01/04/22 02/17/22 1 Day Ago Rx ~02/18/22 duloxetine 30 mg capsule,delayed 30 mg PO DAILY 02/17/22 02/17/22 02/17/22 History release ibuprofen 600 mg tablet 600 mg PO BID 02/17/22 02/17/22 02/17/22 History omeprazole 10 mg capsule,delayed 20 mg PO BID 02/17/22 02/17/22 02/17/22 History release Allergies Allergy/AdvReac Type Severity Reaction Status Date / Time codeine Allergy Severe ALGY-Anaphy Verified 02/16/22 14:01 laxis fentanyl Allergy Severe ADR-Confusi Verified 02/16/22 14:01 on morphine Allergy Severe ADR-Nausea Verified 02/16/22 14:01 acetaminophen [From Vicodin] Allergy ADR-Nausea Verified 02/16/22 14:01 hydrocodone [From Vicodin] Allergy ADR-Nausea Verified 02/16/22 14:01 oxycodone Allergy ADR-Nausea Verified 02/16/22 14:01 tramadol [From Ultram] Allergy ADR-Nausea Verified 02/16/22 14:01 [facility] Anesthesia Medical History (Updated 01/04/22 @ 14:11 by Maricruz Spencer [facility]) Arthralgia of multiple joints Benign essential HTN COPD (chronic obstructive pulmonary disease) Dyslipidemia Dysphagia, idiopathic GERD (gastroesophageal reflux disease) History of malignant melanoma Major depressive disorder, recurrent, moderate with anxious distress Other intervertebral disc degeneration, thoracolumbar region Psychiatric care Surgical History H/O neck surgery H/O: hysterectomy S/P cholecystectomy Status post carpal tunnel release Family History Other Anesthesia complication CAD (coronary artery disease) Cancer Stroke Social History Smoking and tobacco status: former smoker Quit status (tobacco): has quit using tobacco Year quit tobacco: 2020 - 1PPD x 40 Years Second hand smoke exposure: Yes Alcohol intake: never Desire information about alcohol rehabilitation?: No Counseling given: No Desire information about substance/drug rehabilitation?: No Counseling given: No Lives independently: Yes Household members: significant other Marital status: Life Partner Number of children: 3 service: No Current occupational status: disabled History of recent travel: No Current gender identity: Female Data Anesthesia Cardiac Studies: No Data to Display
[2022-02-19] MEDS: sodium chloride 0.9% 1,000 ML 30 ML IV (08:24)
[2022-02-19 09:00] VITALS: BP 122/73; PULSE 72; RESP 12; TEMP 36.3; O2SAT 97
--- NOTE | 2022-02-19 09:06 | ANE.PACU2 ---
Inpatient post-anesthesia follow up: Airway intact: Yes Vital signs: Temperature Pulse Rate Respiratory Rate Blood Pressure Pulse Oximetry Oxygen Delivery Me thod Oxygen Flow Rate Fraction of Inspir ed Oxygen Hydration adequate: Yes Nausea and vomiting: No Pain level: 1 Mental status: Baseline
[2022-02-19 09:10] VITALS: BP 109/64; PULSE 68; RESP 14; O2SAT 94
[2022-02-19 09:25] VITALS: BP 119/81; PULSE 81; RESP 16; O2SAT 96
== END 2022-02-19 09:40 | disposition home or self-care (01) ==
PROVIDERS: PCP Nurse Practitioner Family; Visit Provider Surgery
PROC: 0DJD8ZZ Inspection of Lower Intestinal Tract, Via Natural or Artificial Opening Endoscopic (ICD-10-PCS; CPT 45330; principal; 2022-02-19 09:00)
DX: K92.1 Melena (principal); J44.9 Chronic obstructive pulmonary disease, unspecified; G47.30 Sleep apnea, unspecified; I10 Essential (primary) hypertension; K21.9 Gastro-esophageal reflux disease without esophagitis; E78.5 Hyperlipidemia, unspecified; Z87.891 Personal history of nicotine dependence
CPT/HCPCS: 45330; J2704; J7030

== ENCOUNTER 2022-03-23 08:05 | Outpatient (CLI) | payer MEDICARE, MEDICAID, SELFPAY ==
--- NOTE | 2022-03-23 08:12 | FL_ITS ---
WS: [id number] FL barium enema w air* [id number] REASON FOR EXAM: BLOOD IS PRESENT IN STOOL/MELENA FLUOROSCOPY TIME: 2min [id number] # OF SPOT FILMS: Multiple FINDINGS: The examination was performed as an air-contrast examination with the use of thick barium and insuffl ated air per rectum. The cecal bascule was filled. There was minimal terminal ileal reflux. No fillin g of the appendix. Moderately redundant sigmoid colon and hepatic and splenic flexures. Multiple overhead and spot images were obtained. No extrinsic or intrinsic narrowing compatible with lipomatous infiltration. Of the colon was identif ied. Scattered diverticuli in the sigmoid colon. No intraluminal polyp or mass was identified. Ileocecal valve appeared prominent compatible with lipo matous infiltration. No mucosal abnormality was demonstrated. FL/FL barium enema w air* [id number] IMPRESSION: No narrowing of the colon was identified. No mass, polyp, or mucosal abnormality was identified.
== END 2022-03-23 08:06 | disposition home or self-care (01) ==
LOC: RAD 08:06
PROVIDERS: PCP Nurse Practitioner Family; Visit Provider Surgery
DX: K92.1 Melena (principal)
CPT/HCPCS: 74280

== ENCOUNTER → 2022-03-29 14:43 | Outpatient (BNVA) | payer MEDICARE, MEDICAID, SELFPAY | PROVIDERS: PCP Nurse Practitioner Family; Visit Provider Surgery | DX: K56.699 Other intestinal obstruction unspecified as to partial versus complete obstruction (principal) | CPT/HCPCS: 99213 ==

== ENCOUNTER → 2022-06-07 08:06 | Outpatient (BNVA) | payer MEDICARE, MEDICAID, SELFPAY | PROVIDERS: PCP Nurse Practitioner Family; Visit Provider Podiatrist Foot & Ankle Surgery | DX: M76.71 Peroneal tendinitis, right leg (principal) | CPT/HCPCS: 99214 ==

== ENCOUNTER 2022-10-12 16:04 | Outpatient (RCR) | payer MEDICARE, MEDICAID, SELFPAY | END 2022-10-22 23:59 | disposition home or self-care (01) | LOC: SPT 16:04 | PROVIDERS: Visit Provider Physician Assistant | DX: Z47.89 Encounter for other orthopedic aftercare (principal) | CPT/HCPCS: 97110; 97161 ==

== ENCOUNTER 2022-10-19 08:16 | Outpatient (CLI) | payer MEDICARE, MEDICAID, SELFPAY ==
--- NOTE | 2022-10-19 08:30 | MM_ITS ---
WS: [id number] VIEWS: MLO and CC views both breasts. 3D digital tomosynthesis is also included in this exam. Comparison made with prior exam of 07/13/2010, 11/08/2011, 02/24/2013, 04/16/2015, 05/03/2018, 07/02/2019 an d 07/18/2020. Findings: There was no sign of mass, architectural distortion or suspicious calcification in either breast. Sta ble appearing nodular densities in the left breast.The breasts are almost entirely fatty MM/[place] [id number] Impression: BI-RADS: 2-Benign finding. FOLLOW-UP: 1 Year Follow-up This mammogram was also analyzed by the Computer Aided Detection System R2 Imag e Rubber Calender Helper.
== END 2022-10-19 08:17 | disposition home or self-care (01) ==
LOC: RAD 08:17
PROVIDERS: PCP Nurse Practitioner Family; Visit Provider Nurse Practitioner Family
DX: Z12.31 Encounter for screening mammogram for malignant neoplasm of breast (principal)
CPT/HCPCS: 77063; 77067

== ENCOUNTER → 2023-04-19 15:42 | Outpatient (BNVA) | payer MEDICARE, MEDICAID, SELFPAY | PROVIDERS: PCP Nurse Practitioner Family; Visit Provider Nurse Practitioner Family | DX: Z85.820 Personal history of malignant melanoma of skin (principal); L57.0 Actinic keratosis; L81.4 Other melanin hyperpigmentation; D22.4 Melanocytic nevi of scalp and neck; L57.8 Other skin changes due to chronic exposure to nonionizing radiation; L85.3 Xerosis cutis; L82.1 Other seborrheic keratosis; L82.0 Inflamed seborrheic keratosis; D69.2 Other nonthrombocytopenic purpura | CPT/HCPCS: 17000; 17110; 99213 ==

== ENCOUNTER 2023-05-05 00:51 | Emergency (ER) | payer MEDICARE, MEDICAID, SELFPAY ==
[2023-05-05 00:53] VITALS: BP 118/68; PULSE 75; RESP 21; O2SAT 94; BMI 26.6
--- NOTE | 2023-05-05 01:04 | PC.NURSE ---
THIS NURSE SPOKE WITH ANTWAN AVILEZ AT THE [facility] AT 0105 REGARDING WHAT SIGNS AND SYMPTOMS TO WATCH FOR REGARDING OVERDOSE. THIS NURSE WAS INSTRUCTED TO WATCH FOR THE FOLLOWING S/S: -HYPOTENSION -POTENTIAL RESPIRATORY DISTRESS RECOMMENDED CARE FOR PATIENT IS: -SUPPORTIVE IV FLUIDS NEEDED -O2 NEEDED REVERSAL AGENTS ARE NOT RECOMMENDED AT THIS TIME ACCORDING TO POISON CONTROL. ANTWAN AVILEZ INFORMED THIS NURSE THAT THEY WOULD CALL BACK AND GET UPDATE ON PATIENT STATUS LATER THIS MORNING.
--- NOTE | 2023-05-05 01:09 | PC.NURSE ---
INSTRUCTED PER DR REECE TO NOT DRESS PATIENT OUT OF STREET CLOTHES, OR REMOVE PATIENT BELONGINGS. PATIENT ALSO DOES NOT REQUIRE SITTER AT THIS TIME. NO FURTHER ORDERS RECEIVED AT THIS TIME.
[2023-05-05 01:32] VITALS: BP 127/76; PULSE 77; RESP 18; O2SAT 89
[2023-05-05 02:00] VITALS: BP 108/73; PULSE 75; RESP 19; O2SAT 96
[2023-05-05 02:15] VITALS: BP 114/75; PULSE 74; RESP 19; O2SAT 96
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
[2023-05-05 02:33] VITALS: BP 114/80; PULSE 77; RESP 24; O2SAT 97
[2023-05-05 03:09] VITALS: BP 121/81; PULSE 79; O2SAT 96
== END 2023-05-05 03:11 | disposition home or self-care (01) ==
PROVIDERS: Emergency Provider Internal Medicine; PCP Nurse Practitioner Family
DX: T42.4X1A Poisoning by benzodiazepines, accidental (unintentional), initial encounter (principal); Z87.891 Personal history of nicotine dependence; J44.9 Chronic obstructive pulmonary disease, unspecified; E78.5 Hyperlipidemia, unspecified; I10 Essential (primary) hypertension
CPT/HCPCS: 99283

== ENCOUNTER 2023-07-07 15:47 | Emergency (ER) | payer MEDICARE, MEDICAID, SELFPAY ==
[2023-07-07 16:11] VITALS: BP 111/65; PULSE 87; RESP 16; TEMP 36.6; O2SAT 96; BMI 30.1
[2023-07-07 16:50] LABS: Basophils # 0.1 10^3/uL (0.0-0.1); Basophils % 0.9 %; Eosinophils # 0.4 10^3/uL (0.0-0.8); Eosinophils % 4.7 %; Hematocrit 43.5 % (36-47); Lymphocytes # 2.6 10^3/uL (0.8-4.8); Lymphocytes % 32.8 %; Mean Corpuscular HGB Conc 33.3 g/dL (30-55); Mean Corpuscular Hemoglobin 30.5 pg (27-33); Mean Corpuscular Volume 91.6 fl (85-98); Mean Platelet Volume 10.6 fL (7.4-10.4); Monocytes # 0.6 10^3/uL (0.2-0.9); Monocytes % 7.8 %; Neutrophils # 4.22 10^3/uL (1.8-7.7); Neutrophils % 53.5 %; Nucleated Red Blood Cells % 0 %; Platelet Count 239 10^3/cmm (157-399); Red Blood Count 4.75 10^6/uL (3.85-5.65); Red Cell Distribution Width 12.2 % (12.1-15.1); White Blood Count 7.87 10^3/uL (3.29-11.43)
[2023-07-07 17:11] LABS: Anion Gap 14.5 (5-19); Blood Urea Nitrogen 15 mg/dL (8-23); Calcium 9.6 mg/dL (8.5-10.5); Carbon Dioxide 25 mmol/L (22-29); Chloride 104 mmol/L (98-107); Creatinine Clr Calc Pharmacy 67.7125; Glomerular Filtration Rate 63.2 mL/min (90-130); Glucose 82 mg/dL (65-115); Osmolality Calculated 288 mOsm/kg (285-295); Potassium 4.5 mmol/L (3.5-5.1); Sodium 139 mmol/L (136-145)
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
[2023-07-07] MEDS: ketorolac 60 mg/2 mL INJ IM (18:13)
[2023-07-07] MEDS: lidocaine 1% INJ 10 mL (per mL) 20 ML IM (18:13)
--- NOTE | 2023-07-07 18:26 | PC.NURSE ---
BACTROBAN OINTMENT NOT PULLED FROM PYXIS.
[2023-07-07] MEDS: mupirocin oint 22 gm 1 APPLIC NASAL (18:35)
--- NOTE | 2023-07-08 00:48 | DCPLANNER ---
message sent to wound care for follow up dehiscence wound of chest wall.
--- NOTE | 2023-07-11 09:18 | DCPLANNER ---
A message was sent to wound care on 07/11/23 at 0918. [facility] to contact patient for appt.
== END 2023-07-07 18:46 | disposition home or self-care (01) ==
PROVIDERS: Emergency Medicine; Emergency Provider Family Medicine; PCP Nurse Practitioner Family
DX: T81.31XA Disruption of external operation (surgical) wound, not elsewhere classified, initial encounter (principal); Z87.891 Personal history of nicotine dependence; J44.9 Chronic obstructive pulmonary disease, unspecified; E78.5 Hyperlipidemia, unspecified; I10 Essential (primary) hypertension
CPT/HCPCS: 11042; 36415; 80048; 85025; 86140; 96372; 99284; J1885

== ENCOUNTER → 2023-07-13 08:07 | Outpatient (BNVA) | payer MEDICARE, MEDICAID, SELFPAY | PROVIDERS: PCP Nurse Practitioner Family; Visit Provider Thoracic Surgery (Cardiothoracic Vascular Surgery) | DX: I96 Gangrene, not elsewhere classified (principal); T81.31XD Disruption of external operation (surgical) wound, not elsewhere classified, subsequent encounter; Y83.8 Other surgical procedures as the cause of abnormal reaction of the patient, or of later complication, without mention of misadventure at the time of the procedure | CPT/HCPCS: 97597; 99213; A6212 ==

== ENCOUNTER → 2023-07-20 08:56 | Outpatient (BNVA) | payer MEDICARE, MEDICAID, SELFPAY | PROVIDERS: PCP Nurse Practitioner Family; Visit Provider Thoracic Surgery (Cardiothoracic Vascular Surgery) | DX: T81.31XD Disruption of external operation (surgical) wound, not elsewhere classified, subsequent encounter (principal); Y83.8 Other surgical procedures as the cause of abnormal reaction of the patient, or of later complication, without mention of misadventure at the time of the procedure | CPT/HCPCS: 97597; A6021; A6248 ==

== ENCOUNTER → 2023-07-27 09:59 | Outpatient (BNVA) | payer MEDICARE, SELFPAY | PROVIDERS: PCP Nurse Practitioner Family; Visit Provider Thoracic Surgery (Cardiothoracic Vascular Surgery) | DX: T81.31XD Disruption of external operation (surgical) wound, not elsewhere classified, subsequent encounter (principal); Y83.8 Other surgical procedures as the cause of abnormal reaction of the patient, or of later complication, without mention of misadventure at the time of the procedure | CPT/HCPCS: 97597; A6021; A6212 ==

== ENCOUNTER → 2023-08-03 10:41 | Outpatient (BNVA) | payer MEDICARE, SELFPAY | PROVIDERS: PCP Nurse Practitioner Family; Visit Provider Thoracic Surgery (Cardiothoracic Vascular Surgery) | DX: Z09 Encounter for follow-up examination after completed treatment for conditions other than malignant neoplasm (principal); Z87.2 Personal history of diseases of the skin and subcutaneous tissue | CPT/HCPCS: 99212 ==

== ENCOUNTER 2023-11-10 09:28 | Outpatient (CLI) | payer MEDICARE, MEDICAID, SELFPAY ==
--- NOTE | 2023-11-10 09:35 | MM_ITS ---
WS: [id number] Bilateral screening 3D tomosynthesis digital mammogram, 11/10/2023 Clinical Data: SCREENING Comparison: 10/19/2022, 09/11/2021, 09/17/2020, 07/02/2019, 05/03/2018, 04/16/2015, 02/24/2013, 11/08/2011, . Findings: The breast parenchymal pattern shows fibroglandular tissue. There is tissue in the upper outer quadra nt left breast which is stable. There are lymph nodes in both axilla. No spiculated masses or cluster ed calcifications are seen. There are no secondary signs of carcinoma. MM/[place] [id number] Impression: 1. Negative bilateral mammogram unchanged. 2. Recommend annual screening mammograms. BIRADS: 1-Negative FOLLOW UP: 1 Year Follow-up The CAD cargo checker was used.
== END 2023-11-10 09:29 | disposition home or self-care (01) ==
LOC: RAD 09:28
PROVIDERS: PCP Nurse Practitioner Family; Visit Provider Nurse Practitioner Family
DX: Z12.31 Encounter for screening mammogram for malignant neoplasm of breast (principal); R92.323 Mammographic fibroglandular density, bilateral breasts
CPT/HCPCS: 77063; 77067

== ENCOUNTER → 2023-12-28 09:38 | Outpatient (BNVA) | payer MEDICARE, MEDICAID, SELFPAY | PROVIDERS: PCP Nurse Practitioner Family; Visit Provider Podiatrist Foot & Ankle Surgery | DX: M79.671 Pain in right foot (principal); M79.672 Pain in left foot; M77.41 Metatarsalgia, right foot; M77.42 Metatarsalgia, left foot | CPT/HCPCS: 73630; 99213 ==

== ENCOUNTER → 2024-01-11 13:11 | Outpatient (BNVA) | payer MEDICARE, MEDICAID, SELFPAY | PROVIDERS: PCP Nurse Practitioner Family; Visit Provider Nurse Practitioner Family | DX: L57.0 Actinic keratosis (principal); L81.4 Other melanin hyperpigmentation; D22.4 Melanocytic nevi of scalp and neck; L57.8 Other skin changes due to chronic exposure to nonionizing radiation; L82.1 Other seborrheic keratosis; D69.2 Other nonthrombocytopenic purpura; T81.40XA Infection following a procedure, unspecified, initial encounter; X58.XXXA Exposure to other specified factors, initial encounter; B07.0 Plantar wart; D36.13 Benign neoplasm of peripheral nerves and autonomic nervous system of lower limb, including hip; Z85.820 Personal history of malignant melanoma of skin; L91.8 Other hypertrophic disorders of the skin; D23.61 Other benign neoplasm of skin of right upper limb, including shoulder; L82.0 Inflamed seborrheic keratosis; Z85.828 Personal history of other malignant neoplasm of skin | CPT/HCPCS: 17000; 17110; 99213 ==

== ENCOUNTER 2024-01-18 08:00 | Outpatient (CLI) | payer MEDICARE, MEDICAID, SELFPAY ==
--- NOTE | 2024-01-18 08:00 | CT_ITS ---
WS: [id number] LDCT LUNG CANCER SCREENING TECHNIQUE: Noncontrast CT of the chest with coronal and sagittal reformatted images. CLINICAL INFORMATION: lung cancer screening COMPARISON: 12/15/2021 DLP: 80.89 mGy.cm DIvol: Mean CTDIvol: 1.80 (mGy) All CT scans at [facility] use at least one of these dose optimization techniques: automat ed exposure control; mA and/or kV adjustment per patient size (includes targeted exams where dose is matched to clinical indication); or iterative reconstruction. FINDINGS: A few stable subcentimeter noncalcified nodules. Stable 3 mm subpleural nodule LEFT lower lobe and 5 mm subpleural nodule along the RIGHT fissure. A few calcified granulomas. No mediastinal or hilar lymphadenopathy. Normal caliber thoracic aorta. No aortic calcification. Prio r cholecystectomy. Hypertrophic changes thoracic spine. CT/CT lung screening [id number] IMPRESSION: LUNG-RADS: 2-Benign Appearance or Behavior FOLLOW UP: 12 Month: Continue annual screening with LDCT
--- NOTE | 2024-01-18 08:15 | CT_ITS ---
WS: [id number] CT NECK TECHNIQUE: Contrast-enhanced CT of the neck with coronal and sagittal reformatted images. CLINICAL INFORMATION: choking COMPARISON: CT neck 08/06/2020 DLP: 225.[address] scans at [facility] use at least one of these dose optimization techniques: automated e xposure control; mA and/or kV adjustment per patient size (includes targeted exams where dose is matc hed to clinical indication); or iterative reconstruction. FINDINGS: No evidence of supraglottic or glottic mass. Normal subglottic airway. Apposition of the vocal cords likely due to talking or swallowing during the examination. Normal posterior nasopharynx. Normal parapharyngeal fat. Parotid glands are normal. Normal submandibu lar glands. Advanced emphysematous changes in the lung apices. Partially visualized subpleural wedge- shaped opacity in the RIGHT upper lobe appears unchanged since the prior lung screening CT measuring 7 to 8 mm. A few small thyroid nodules. Prior postoperative changes ACDF C4-C6. Straightening of the normal cerv ical lordosis. Partially visualized paranasal sinuses are well aerated. Mastoid air cells are well ae rated. RIGHT greater than LEFT carotid bulb calcification extending into the ICA. Approximately 50% RIGHT pr oximal ICA stenosis. This can be followed up with ultrasound or CTA neck. CT/CT neck w con* [id number] IMPRESSION: 1. No evidence of supraglottic or glottic mass. 2. Effacement of the glottis with apposition of the vocal cords likely due to talking or swallowing during the examination. This is similar to the prior stud y in 2020. No visualized mass or lesion. This could be further evaluated with e ndoscopy to assess for paradoxical vocal cord movement 3. No cervical lymphadenopathy. 4. Normal salivary glands. 5. Prior postoperative changes ACDF C4-C6. 6. Approximately 50% RIGHT proximal ICA stenosis. This could further evaluated with CTA neck or ultrasound. 7. No other acute findings.
[2024-01-18 08:37] LABS: Blood Urea Nitrogen 13 mg/dL (8-23); Creatinine Clr Calc Pharmacy 62.5102; Glomerular Filtration Rate 55.8 mL/min (90-130)
[2024-01-18] MEDS: iohexol 350 mg/mL 500 mL Btl (per mL) IV (08:47)
== END 2024-01-18 08:03 | disposition home or self-care (01) ==
PROVIDERS: Radiology Diagnostic Radiology; PCP Nurse Practitioner Family; Visit Provider Internal Medicine Critical Care Medicine
DX: I65.21 Occlusion and stenosis of right carotid artery (principal); F17.218 Nicotine dependence, cigarettes, with other nicotine-induced disorders; F17.200 Nicotine dependence, unspecified, uncomplicated; R09.89 Other specified symptoms and signs involving the circulatory and respiratory systems; J38.3 Other diseases of vocal cords; R06.09 Other forms of dyspnea
CPT/HCPCS: 70491; 71271; 82565; 84520

== ENCOUNTER 2024-01-25 06:55 | Outpatient (CLI) | payer MEDICARE, MEDICAID, SELFPAY ==
[2024-01-25 07:22] VITALS: PULSE 79; RESP 18; O2SAT 97
[2024-01-25] MEDS: albuterol 2.5 mg/3 mL Neb INHALATION (07:22)
[2024-01-25 07:26] VITALS: PULSE 82
== END 2024-01-25 06:56 | disposition home or self-care (01) ==
LOC: RT 06:56
PROVIDERS: PCP Nurse Practitioner Family; Visit Provider Internal Medicine Critical Care Medicine
DX: J44.89 Other specified chronic obstructive pulmonary disease (principal); J38.3 Other diseases of vocal cords; R06.09 Other forms of dyspnea; R94.2 Abnormal results of pulmonary function studies
CPT/HCPCS: 94060; 94726; 94729

== ENCOUNTER → 2024-01-26 13:25 | Outpatient (BNVA) | payer MEDICARE, MEDICAID, SELFPAY | PROVIDERS: PCP Nurse Practitioner Family; Visit Provider Internal Medicine Cardiovascular Disease | DX: I49.8 Other specified cardiac arrhythmias (principal); R07.9 Chest pain, unspecified; I49.3 Ventricular premature depolarization | CPT/HCPCS: 93005 ==

== ENCOUNTER 2024-02-15 14:02 | Outpatient (CLI) | payer MEDICARE, MEDICAID, SELFPAY | END 2024-02-15 14:03 | disposition home or self-care (01) | LOC: SLEEP 14:03 | PROVIDERS: PCP Nurse Practitioner Family; Visit Provider Internal Medicine Critical Care Medicine | DX: G47.33 Obstructive sleep apnea (adult) (pediatric) (principal) | CPT/HCPCS: G0399 ==

== ENCOUNTER 2024-02-22 11:25 | Outpatient (CLI) | payer MEDICARE, MEDICAID, SELFPAY ==
[2024-02-22 12:01] LABS: Basophils # 0.1 10^3/uL (0.0-0.1); Basophils % 1.1 %; Eosinophils # 0.5 10^3/uL (0.0-0.8); Eosinophils % 6.9 %; Hematocrit 42.7 % (36-47); Lymphocytes # 2.1 10^3/uL (0.8-4.8); Lymphocytes % 28.2 %; Mean Corpuscular Hemoglobin 29.7 pg (27-33); Mean Corpuscular Volume 90.1 fl (85-98); Mean Platelet Volume 11.1 fL (7.4-10.4); Monocytes # 0.5 10^3/uL (0.2-0.9); Neutrophils # 4.21 10^3/uL (1.8-7.7); Neutrophils % 56.5 %; Nucleated Red Blood Cells % 0 %; Platelet Count 228 10^3/cmm (157-399); Red Blood Count 4.74 10^6/uL (3.85-5.65); Red Cell Distribution Width 11.7 % (12.1-15.1); White Blood Count 7.44 10^3/uL (3.29-11.43)
[2024-02-22 12:17] LABS: Anion Gap 15.4 (5-19); Blood Urea Nitrogen 12 mg/dL (8-23); Carbon Dioxide 25 mmol/L (22-29); Chloride 103 mmol/L (98-107); Glucose 104 mg/dL (65-115); Osmolality Calculated 288 mOsm/kg (285-295); Potassium 4.4 mmol/L (3.5-5.1); Sodium 139 mmol/L (136-145)
== END 2024-02-22 11:26 | disposition home or self-care (01) ==
LOC: LAB 11:27
PROVIDERS: PCP Nurse Practitioner Family; Visit Provider Internal Medicine Cardiovascular Disease
DX: R07.9 Chest pain, unspecified (principal)
CPT/HCPCS: 80048; 85025

== ENCOUNTER 2024-02-23 05:56 | Outpatient (CLI) | payer MEDICARE, MEDICAID, SELFPAY ==
[2024-02-23] VITALS (37 sets, daily range): BP systolic 106–137; BP diastolic 48–83; PULSE 69–89; RESP 10–20; TEMP 36.7; O2SAT 90–94; BMI 31.6
--- NOTE | 2024-02-23 06:00 | XACV_ITS ---
Exam Room: 2 Ht: 165 cm Wt: 86 kg BSA: 2.02 m2 Gender: Female : 1960 Any Known Allergies: Other Exam Priority: Routine Procedure(s): Procedure Description: Diagnostic procedure Procedure Description: Left Heart Catheterization Procedure Description: Right Heart Catheterization Procedure Description: Left ventriculography Procedure Description: O2 saturation Procedure Description: Coronary Angiography Derek PATE; Diagnostic Cath Status: Elective Recommendations * Risk factor modification for secondary prevention. * Continue medical management and risk factor modification. Diagnostic RX Recommendation: medical therapy and/or counseling Ventriculography Ejection Fraction: 70.0 % Pressures Phase:Rest AO : 111 / 83 ( 98 ) @ 9:14:00 AM 141 / 73 ( 102 ) @ 9:18:00 AM 89 / 44 ( 58 ) @ 9:19:00 AM LV : 135 / 0 / 21 @ 9:17:00 AM 140 / 0 / 24 @ 9:18:00 AM 138 / 3 / 28 @ 9:18:00 AM RV : 40 / 8 / 18 @ 9:03:00 AM PA : 41 / 21 ( 28 ) @ 9:02:00 AM RA : a wave = 18 v wave = 15 mean = 13 @ 9:04:00 AM PCW : a wave = 23 v wave = 27 mean = 23 @ 9:02:00 AM O2 Content Phase:Rest PA : O2 Content O2: 72.2 @ 9:17:00 AM Saturations Phase:Rest AO : 95 @ 9:14:00 AM RA : 68 @ 9:19:00 AM RV : 68 @ 9:18:00 AM PA : 72 @ 9:17:00 AM Cardiac Output Phase:Rest Liv : 4 @ 8:36:58 AM Liv Cardiac Index: 2 @ 8:36:58 AM Flow Phase:Rest Qp : 4 @ 8:36:58 AM Qs : 4 @ 8:36:58 AM Valves Phase:DefaultPhase AV : 0.0 @ 8:36:58 AM AV Mean Gradient: 0.0 @ 8:36:58 AM AV Flow: 495 @ 8:36:58 AM Clinical Evaluation EBL: 5mL-10mL Procedural Details Pre-Procedure Time Out. Identified patient by full name and date of as verbalized by the patient/guarantor. Does the consent match the physician's order: Yes. Accurate & Complete Informed Consent: Yes. Inpatient/Outpatient History & Physical on Chart: Yes. If H&P is completed, is and addenduem needed: No. Visualize and Verify Site with Patient/Guarantor: N/A. Relevant Radiology Images available: Yes. Pre-op teaching completed and patient verbalized understanding. The risks, benefits, and alternatives of sedation and/or procedure were discussed by physician. The patient agrees to continue. Procedure started. [facility] Clinical Fraility Score: 3: Managing Well. Clinical Cytogeneticist Scientist Indications: Worsening Angina/Unstable angina/Unexplained SOB. Chest Pain Symptom Assessment: Atypical Angina. Cardiovascular Instability: No. Correct patient, site and procedure confirmed by cath team. PERRLA. Strong, equal hand cms expert bilaterally. Lungs clear x 5 lobes. IV Site on Arrival: 20 gauge in the left anticubital. IV Site on Arrival: 20 gauge in the right anticubital. IV Fluids: 0.9% NaCl at KVO. 0 mL infused prior to general labor. Pre Procedural Pulses: bilateral dorsalis pedis was 3+. Pre Procedural Pulses: bilateral posterior tibial was 3+. Pre Procedural Pulses: bilateral radial was 3+. right groin was prepped with chloroprep then draped in the usual sterile fashion. right radial was prepped with chloroprep then draped in the usual sterile fashion. Physician notified. Baseline sample Acquired. HR: 74 BPM. Patient's family in CPRU. Dr. Reed will update at the completion of the procedure. Equipment: 6F - Radial. Cardiac Cath Pack. ACIST Manifold Kit Model BT 2000. Heparinized Saline (2 units/mL), 1000 mL bag. Physician arrived. Physician scrubbed in. Immediate Pre-Procedure Time Out. Correct Patient: Yes; Correct Procedure: Yes; Correct Site: Yes; Correct Patient Position: Yes; Correct Supplies: Yes; Dried Flammable Prep: Yes; Blood Products Available: N/A. Wire in the existing 20 PIV in the Right Brachial vein. Lidocaine 1% infiltrated to the left brachial. [place] MON catheter inserted. Oximetry samples were obtained. Normal venous range: 60-85%. Normal arterial range: 95-100%. Pressure measurements obtained. ABG drawn and sent with respiratory therapy. [place] out. Oxygen started at 2liters/min via nasal canula. Lidocaine 1% infiltrated to the right radial. Arterial access obtained. A 5 [place] catheter in over the exchange J wire. Multiple views taken of left coronary artery. Catheter redirected to the RCA. Multiple views taken of right coronary artery. Catheter removed over the exchange J wire. A 5 [place] catheter in over the exhange J wire. EDP Sample taken: LV 135/-1,21; HR: 76 BPM; SpO2: 94%. LV gram performed in [place] @ 10 mL/second for a total of 30 mL. EDP Sample taken: LV 140/-1,24; HR: 93 BPM; SpO2: 92%. Pullback taken: LV 138/3,28; AO 141/73(102); Mean: 0mmHg, Peak to Peak: 0mmHg, SEP: 9sec/min; HR: 82 BPM; SpO2: 91%. Physician scrubbed out. A Manual Compression was successful obtaining hemostatsis at the Right Brachial Vein insertion site. A TR Band was successful obtaining hemostatsis at the Right Femoral artery insertion site. Post Procedure: Pulses reassessed and unchanged. PERRLA. Strong, equal hand cms expert bilaterally. No VTE prophylaxis required. Medication's Wasted: Lidocaine 1% = 17 mL. Medication's Wasted: Heparin = 3000 units. Medication's Wasted: Nitro = 49.8 mg. Total IV fluids: 60 mL. Post-op diagnosis: Non obstructive CAD/Normal RHC. Complications: none. Estimated blood loss: 5mL-10mL. Responsiveness - Normal response to verbal stimuli; alert and oriented, PERRLA. Airway - Unaffected, no intervention required; spontaneous ventilation. Circulation: W/N/L, pulses unchanged. Nausea/Vomiting: No. Procedure completed. Patient transferred by bed to CPRU. Vital chart was stopped. Access Site Site: Right Brachial Vein Sheath Size: 6 Fr Hemostasis Method: Manual Compression Hemostasis Success: Successful Site: Right Femoral artery Sheath Size: 6 Fr Hemostasis Method: TR Band Hemostasis Success: Successful Procedure Medications Start: 7:46 AM Stop: 7:46 AM Medication: Zofran (ondansetron) Amount: 4 mg Route: I.V. Start: 7:50 AM Stop: 7:50 AM Medication: Versed Amount: 1 mg Start: 7:50 AM Stop: 7:50 AM Medication: Versed Amount: 1 mg Start: 7:57 AM Stop: 7:57 AM Medication: Versed Amount: 1 mg Start: 8:07 AM Stop: 8:07 AM Medication: Versed Amount: 1 mg Start: 8:12 AM Stop: 8:12 AM Medication: Heparin Amount: 5000 units Route: I.V. Start: 8:08 AM Stop: 8:08 AM Medication: Nitrogylcerin Amount: 200 mcg Route: I.A. I, the attending physician, have reviewed and verified all procedure medications. Yes, all medications given per verbal order History/Risk Factors Hypertension: Yes Dyslipidemia: Yes Peripheral Arterial Disease (PAD): No Myocardial Infarction (MN): No Obesity: Yes Renal Disease: No Tobacco Use: Current/Recent(w/in 1 year) Prior Interventions PCI: No CABG: No Valve Surgery: No Report Signatures Finalized by Basil Reed MD on 03/18/2024 11:48 PM
[2024-02-23] MEDS: diphenhydrAMINE 50 mg Capsule PO (06:25)
[2024-02-23] MEDS: aspirin 325 mg Tablet PO (06:25)
--- NOTE | 2024-02-23 07:48 | W.PM.OPSUD ---
Surgery/Procedure H&P Update DATE OF PROCEDURE: February 23, 2024 DATE H&P PERFORMED: 01/26/24 H&P UPDATE INFORMATION: I have reviewed H&P completed within last 30 days, I have examined patient prior to procedure, No changes to prior documentation and Changes to prior documentation as noted here PREOP DIAGNOSIS: Unexplained shortness of breath PLANNED PROCEDURE: Operation Date: 02/23/24 07:00 Proposed Procedures p Cardiac Catheterization - [facility] W/WO LV+ [place](Bilateral) - Basil Reed MD PATIENT REASSESSED PRIOR TO SEDATION, WITH NO CHANGE NOTED: Yes PHYSICAL EXAM: alert, oriented x 3, clear to auscultation bilaterally and regular rate & rhythm AIRWAY EVAL/ANESTHESIA PLAN: ASA II and Risks, benefits & alternatives of sedation and/or procedure discussed ADDITIONAL INFORMATION: Mallampati 2
[2024-02-23 08:18] LABS: Alveolar-Arterial Oxygen Gradi 3.8 mmHg (5-10); Arterial Blood Gas Hematocrit 40.9 % (37-47); Blood Gas Allen Test Pos; Blood Gas Sample Type Arterial; Carboxyhemoglobin 5.2 %THgb (0.4-20.1); HGB O2 Sat 88.6 % (95-100); Methemoglobin 1.2 % (0.4-1.5); Total Hemoglobin 13.3 g/dL (12-16)
[2024-02-23 08:20] LABS: Blood Gas Operator Identificat BROMA
[2024-02-23 08:23] LABS: Arterial Blood Gas Hematocrit 36.7 % (37-47); Blood Gas Operator Identificat BROMA; Blood Gas Sample Type Arterial; Carboxyhemoglobin 5.4 %THgb (0.4-20.1); HGB O2 Sat 63.6 % (95-100); Methemoglobin 1.1 % (0.4-1.5)
[2024-02-23 08:25] LABS: Arterial Blood Gas Hematocrit 37.2 % (37-47); Blood Gas Operator Identificat BROMA; Blood Gas Sample Type Arterial; Carboxyhemoglobin 5.4 %THgb (0.4-20.1); HGB O2 Sat 63.2 % (95-100); Total Hemoglobin 12.1 g/dL (12-16)
[2024-02-23 08:27] LABS: Alveolar-Arterial Oxygen Gradi 6.7 mmHg (5-10); Arterial Blood Gas Hematocrit 40.8 % (37-47); Blood Gas Operator Identificat BROMA; Blood Gas Sample Type Arterial; Carboxyhemoglobin 5.4 %THgb (0.4-20.1); HGB O2 Sat 67.6 % (95-100); Total Hemoglobin 13.3 g/dL (12-16)
[2024-02-23 08:27] LABS: Blood Gas Sample Site AO
[2024-02-23 08:28] LABS: Blood Gas Sample Site PA
[2024-02-23 08:28] LABS: Blood Gas Sample Site RV
[2024-02-23 08:29] LABS: Blood Gas Sample Site PA
== END 2024-02-23 11:45 | disposition home or self-care (01) ==
PROVIDERS: PCP Nurse Practitioner Family; Visit Provider Internal Medicine Cardiovascular Disease
DX: R07.9 Chest pain, unspecified (principal); I10 Essential (primary) hypertension; E78.5 Hyperlipidemia, unspecified; E66.9 Obesity, unspecified; Z68.31 Body mass index [BMI] 31.0-31.9, adult; I48.91 Unspecified atrial fibrillation; J44.9 Chronic obstructive pulmonary disease, unspecified; F17.210 Nicotine dependence, cigarettes, uncomplicated
CPT/HCPCS: 36415; 82810; 93460; 96365; 96374; 96375; 99152; 99153; C1751; C1769; C1887; C1894; J1644; J2250; J2405; J3490; J7050; Q0163; Q9967

== ENCOUNTER → 2024-04-10 13:01 | Outpatient (BNVA) | payer MEDICARE, OTHER, SELFPAY | PROVIDERS: PCP Nurse Practitioner Family; Visit Provider Internal Medicine Cardiovascular Disease | DX: I25.111 Atherosclerotic heart disease of native coronary artery with angina pectoris with documented spasm (principal); I48.91 Unspecified atrial fibrillation; R00.2 Palpitations; I27.20 Pulmonary hypertension, unspecified; F17.210 Nicotine dependence, cigarettes, uncomplicated; I10 Essential (primary) hypertension | CPT/HCPCS: 99214 ==

== ENCOUNTER → 2024-05-09 10:30 | Outpatient (BNVA) | payer MEDICARE, MEDICAID, SELFPAY | PROVIDERS: PCP Nurse Practitioner Family; Visit Provider Podiatrist Foot & Ankle Surgery | DX: M77.41 Metatarsalgia, right foot (principal); M77.42 Metatarsalgia, left foot; M19.071 Primary osteoarthritis, right ankle and foot; M19.072 Primary osteoarthritis, left ankle and foot | CPT/HCPCS: 99213 ==

== ENCOUNTER → 2024-05-29 09:26 | Outpatient (BNVA) | payer MEDICARE, SELFPAY | PROVIDERS: PCP Family Medicine; Visit Provider Family Medicine | DX: I10 Essential (primary) hypertension (principal); I25.10 Atherosclerotic heart disease of native coronary artery without angina pectoris; R73.01 Impaired fasting glucose; E04.1 Nontoxic single thyroid nodule; K21.9 Gastro-esophageal reflux disease without esophagitis; K59.01 Slow transit constipation; R07.9 Chest pain, unspecified; I65.23 Occlusion and stenosis of bilateral carotid arteries; I25.118 Atherosclerotic heart disease of native coronary artery with other forms of angina pectoris; J44.9 Chronic obstructive pulmonary disease, unspecified; F17.218 Nicotine dependence, cigarettes, with other nicotine-induced disorders; Z12.2 Encounter for screening for malignant neoplasm of respiratory organs; E78.5 Hyperlipidemia, unspecified; Z76.89 Persons encountering health services in other specified circumstances | CPT/HCPCS: 80053; 80061; 82607; 83036; 84439; 84443; 85025 ==

== ENCOUNTER → 2024-06-20 11:37 | Outpatient (BNVA) | payer MEDICARE, OTHER, SELFPAY | PROVIDERS: PCP Family Medicine; Visit Provider Podiatrist Foot & Ankle Surgery | DX: M77.41 Metatarsalgia, right foot (principal); M77.42 Metatarsalgia, left foot; M19.071 Primary osteoarthritis, right ankle and foot; M19.072 Primary osteoarthritis, left ankle and foot | CPT/HCPCS: 99213 ==

== ENCOUNTER 2024-06-26 15:02 | Outpatient (CLI) | payer MEDICARE, OTHER, SELFPAY ==
--- NOTE | 2024-06-26 15:00 | CT_ITS ---
WS: [id number] CT ANGIOGRAM CEREBRAL AND CAROTID ARTERIES HISTORY: CT neck showed carotid artery calcification TECHNIQUE: CT angiogram is performed of the carotid and cerebral arteries. During arterial injection imaging is obtained from the skull vertex to the aortic arch in 1.25 mm imaging. Coronal and sagittal reformats are submitted. Additional multi planar reformats of the carotid and cerebral arteries are submitted, MIP imaging also reviewed. NASCET criteria utilized. All CT scans at [facility] use at least one of these dose optimization techniques: automated exposure control; mA and/or kV adjustment per patient size (includes targeted exams where dose is matched to clinical indication); or iterative reconstruction. CONTRAST: Omnipaque 350; 100 mL IV. DLP: 1246.27 mGy.cm COMPARISON: 06/16/[address] head first performed. Minimal small vessel disease. No prior infarct or hemorrhage. Carotid Angiogram: Right carotid: Common carotid artery: Arises normally from the innominate artery. No significant plaque or stenosis. Internal carotid artery: Plaque at the bifurcation causing a mild stenosis of 60%. External carotid artery: Patent. Left carotid: Common carotid artery: Arises normally from the aorta. No significant plaque or stenosis. Internal carotid artery: Very small amount of plaque at the bifurcation. No stenosis. External carotid artery: Patent. Right vertebral artery: Unremarkable. Left vertebral artery: Unremarkable. Arises normally from the subclavian artery. Subclavian arteries: No stenosis or significant abnormality. Upper thorax: Lungs are clear. Mild atherosclerotic plaque within the aortic arch. Thyroid gland: Subcentimeter RIGHT thyroid nodule. Osseous structures: Anterior cervical fusion C4-C6. CEREBRAL ANGIOGRAM: Intracranial vertebral arteries: Normal with no significant atherosclerosis. Basilar artery: No significant stenosis or occlusion. No aneurysm. Intracranial Internal carotid arteries: Increasing calcified plaque to the carotid cavernous sinuses with stenosis just less than 50%. Middle cerebral arteries: Normal. Anterior cerebral arteries and ACOM: Normal. Posterior cerebral arteries and PCOM's: Normal. Dural venous sinuses are normally enhancing. Mastoid air cells: Normal. Paranasal sinuses: Normal. Calvarium: Normal. CT/CT angio headneck* [id number] IMPRESSION: 1. RIGHT ICA stenosis 60%. 2. No significant stenosis LEFT ICA. 3. Atherosclerotic plaque in the intracranial carotid arteries, stenosis less than 50%. 4. No cerebral artery aneurysm or occlusions.
[2024-06-26] MEDS: iohexol 350 mg/mL 500 mL Btl (per mL) IV (15:23)
== END 2024-06-26 15:03 | disposition home or self-care (01) ==
PROVIDERS: PCP Family Medicine; Visit Provider Family Medicine
DX: I65.23 Occlusion and stenosis of bilateral carotid arteries (principal); I70.0 Atherosclerosis of aorta; E04.1 Nontoxic single thyroid nodule; Z98.1 Arthrodesis status
CPT/HCPCS: 70496; 70498

== ENCOUNTER → 2024-07-24 15:33 | Outpatient (BNVA) | payer MEDICARE, OTHER, SELFPAY | PROVIDERS: PCP Family Medicine; Visit Provider Nurse Practitioner Family | DX: L81.4 Other melanin hyperpigmentation (principal); D22.4 Melanocytic nevi of scalp and neck; L57.8 Other skin changes due to chronic exposure to nonionizing radiation; L85.3 Xerosis cutis; L82.1 Other seborrheic keratosis; D69.2 Other nonthrombocytopenic purpura; Z85.828 Personal history of other malignant neoplasm of skin; Z08 Encounter for follow-up examination after completed treatment for malignant neoplasm; Z85.820 Personal history of malignant melanoma of skin; D48.5 Neoplasm of uncertain behavior of skin; L57.0 Actinic keratosis | CPT/HCPCS: 11102; 17000; 99213 ==

== ENCOUNTER → 2024-08-01 14:36 | Outpatient (BNVA) | payer MEDICARE, OTHER, SELFPAY | PROVIDERS: PCP Family Medicine; Visit Provider Internal Medicine Cardiovascular Disease | DX: I25.118 Atherosclerotic heart disease of native coronary artery with other forms of angina pectoris (principal); I48.91 Unspecified atrial fibrillation; I10 Essential (primary) hypertension; F17.210 Nicotine dependence, cigarettes, uncomplicated | CPT/HCPCS: 99214 ==

== ENCOUNTER → 2024-09-25 09:17 | Outpatient (BNVA) | payer MEDICARE, MEDICAID, SELFPAY | PROVIDERS: PCP Family Medicine; Visit Provider Nurse Practitioner Psychiatric/Mental Health | DX: Z79.899 Other long term (current) drug therapy (principal); R10.9 Unspecified abdominal pain | CPT/HCPCS: 80053; 81001; 82306; 82607; 85025; 87086 ==

== ENCOUNTER → 2024-09-26 10:43 | Outpatient (BNVA) | payer MEDICARE, SELFPAY | PROVIDERS: PCP Family Medicine; Visit Provider Nurse Practitioner | DX: R39.9 Unspecified symptoms and signs involving the genitourinary system (principal); N39.0 Urinary tract infection, site not specified | CPT/HCPCS: 81000; 87086 ==

== ENCOUNTER → 2024-10-15 08:20 | Outpatient (BNVA) | payer MEDICARE, MEDICAID, SELFPAY | PROVIDERS: PCP Family Medicine; Visit Provider Podiatrist Foot & Ankle Surgery | DX: M77.41 Metatarsalgia, right foot (principal); M77.42 Metatarsalgia, left foot; M19.071 Primary osteoarthritis, right ankle and foot; M19.072 Primary osteoarthritis, left ankle and foot; M72.2 Plantar fascial fibromatosis; M76.72 Peroneal tendinitis, left leg | CPT/HCPCS: 99213 ==

== ENCOUNTER → 2024-11-05 13:12 | Outpatient (BNVA) | payer MEDICARE, MEDICAID, SELFPAY | PROVIDERS: PCP Family Medicine; Visit Provider Emergency Medicine | DX: R39.9 Unspecified symptoms and signs involving the genitourinary system (principal); R06.02 Shortness of breath; N39.0 Urinary tract infection, site not specified | CPT/HCPCS: 81000; 87086; 87426 ==

== ENCOUNTER → 2024-11-06 13:03 | Outpatient (BNVA) | payer OTHER, MEDICAID, SELFPAY | PROVIDERS: PCP Family Medicine; Visit Provider Internal Medicine Cardiovascular Disease | DX: I25.10 Atherosclerotic heart disease of native coronary artery without angina pectoris (principal); I48.91 Unspecified atrial fibrillation; I95.9 Hypotension, unspecified; R20.0 Anesthesia of skin; F17.210 Nicotine dependence, cigarettes, uncomplicated | CPT/HCPCS: 99214 ==

== ENCOUNTER 2024-11-28 06:54 | Outpatient (CLI) | payer MEDICARE, MEDICAID, SELFPAY ==
--- NOTE | 2024-11-28 07:00 | USCV_ITS ---
Katiuska Mojica Age: 63 Gender: F : 1960 Exam Date: 11/28/2024 07:15 Ordering Phys: Basil Reed MD ([email or web address]) Technologist: Exam Location: [facility] [place] Indication: cp sob afib BP: 130 / 80 HR: 72 Rhythm: Sinus Technical Quality: Adequate MEASUREMENTS (Male / Female) Normal Values 2D ECHO LV Diastolic Diameter PLAX 3.8 cm 4.2 - 5.9 / 3.9 - 5.3 cm IVS Diastolic Thickness 1.0 cm 0.6 - 1.0 / 0.6 - 0.9 cm IVS Systolic Thickness 1.3 cm LVPW Diastolic Thickness 1.2 cm 0.6 - 1.0 / 0.6 - 0.9 cm LVPW Systolic Thickness 1.3 cm LVOT Diameter 2.0 cm LV Ejection Fraction 2D Teich 63.5 % LV Ejection Fraction MOD 4C 62.7 % LV Ejection Fraction MOD 2C 66.3 % LV Ejection Fraction 2C AL 66.9 % LA Diameter 3.1 cm RA Systolic Volume 4C AL 28.6 ml RA Systolic Volume 4C MOD 27.5 ml Aorta at Sinotubular Diameter 2.9 cm IVC Diameter 2.1 cm M-MODE LA Ao Ratio MM 1.4 AV Cusp Separation MM 2.1 cm DOPPLER AV Peak Velocity 122.0 cm/s LVOT Peak Velocity 103.0 cm/s AV Area Cont Eq vti 2.7 cm squared AV Area Cont Eq pk 2.7 cm squared MV Peak Velocity 112.0 cm/s MV Area PHT 4.2 cm squared Mitral E to A Ratio 1.1 TV Peak Velocity 205.0 cm/s TR Peak Velocity 227.0 cm/s TR Peak Gradient 20.6 mmHg TV Peak E Velocity 100.0 cm/s PV Peak Velocity 88.0 cm/s FINDINGS Left Ventricle Left ventricle is normal size. LV systolic function is normal with EF of 60-65%. No regional wall motion abnormalities are seen. Right Ventricle Normal in size and function Right Atrium Normal in size Left Atrium Normal in size Mitral Valve Structurally normal mitral valve. Trace mitral regurgitation Aortic Valve Structurally normal aortic valve. No significant stenosis or regurgitation Tricuspid Valve Mild tricuspid regurgitation. Pulmonary artery systolic pressure is normal. Pulmonic Valve Not well visualized Pericardium Normal Aorta Normal in size IVC Appears to be normal CONCLUSIONS LV systolic function is normal with EF of 60-65%. Trace mitral regurgitation. Mild tricuspid regurgitation Chago Coyne MD (Electronically Signed) Final Date: 28 November 2024 13:16 S
--- NOTE | 2024-11-28 07:18 | MM_ITS ---
WS: [id number] BILATERAL SCREENING DIGITAL TOMOSYNTHESIS MAMMOGRAM WITH CAD HISTORY: SCREENING COMPARISON: 11/10/2023, 10/19/2022 Bilateral CC and MLO views with tomosynthesis and synthetic mammography submitted. Computer aided detection analyzed. Breast composition: There are scattered areas of fibroglandular density. No suspicious masses, microcalcifications or architectural distortion. Stable asymmetries in the upper outer quadrant LEFT breast. Benign calcifications. MM/MM scr BI tomosynthesis [id number] IMPRESSION: BI-RADS: 2 - Benign. FOLLOW UP: 1 Year Follow-up
== END 2024-11-28 06:55 | disposition home or self-care (01) ==
LOC: RAD 06:54
PROVIDERS: PCP Family Medicine; Visit Provider Internal Medicine Cardiovascular Disease
DX: Z12.31 Encounter for screening mammogram for malignant neoplasm of breast (principal); I48.20 Chronic atrial fibrillation, unspecified; R92.323 Mammographic fibroglandular density, bilateral breasts; R92.1 Mammographic calcification found on diagnostic imaging of breast; N64.89 Other specified disorders of breast; R07.9 Chest pain, unspecified; R06.02 Shortness of breath
CPT/HCPCS: 77063; 77067; 93306

== ENCOUNTER → 2024-12-17 08:53 | Outpatient (BNVA) | payer OTHER, MEDICAID, SELFPAY | PROVIDERS: PCP Family Medicine; Visit Provider Podiatrist Foot & Ankle Surgery | DX: M77.41 Metatarsalgia, right foot (principal); M77.42 Metatarsalgia, left foot; M19.071 Primary osteoarthritis, right ankle and foot; M19.072 Primary osteoarthritis, left ankle and foot; M72.2 Plantar fascial fibromatosis; M76.72 Peroneal tendinitis, left leg | CPT/HCPCS: 99213 ==

== ENCOUNTER → 2024-12-19 14:44 | Outpatient (BNVA) | payer OTHER, MEDICAID, SELFPAY | PROVIDERS: PCP Family Medicine; Visit Provider Nurse Practitioner Family | DX: L82.0 Inflamed seborrheic keratosis (principal); L57.8 Other skin changes due to chronic exposure to nonionizing radiation; D04.71 Carcinoma in situ of skin of right lower limb, including hip; L57.0 Actinic keratosis | CPT/HCPCS: 17000; 17260; 99213 ==

== ENCOUNTER → 2024-12-27 10:54 | Outpatient (BNVA) | payer MEDICARE, SELFPAY | PROVIDERS: PCP Family Medicine; Visit Provider Family Medicine | DX: N39.0 Urinary tract infection, site not specified (principal); R39.15 Urgency of urination | CPT/HCPCS: 81000 ==

== ENCOUNTER 2025-01-02 09:13 | Outpatient (CLI) | payer OTHER, MEDICAID, SELFPAY ==
--- NOTE | 2025-01-02 09:30 | CT_ITS ---
WS: [id number] CT CHEST TECHNIQUE: Noncontrast CT of the chest with coronal and sagittal reformatted images. CLINICAL INFORMATION: Follow up nodules COMPARISON: 2023 DLP: [id number] [facility] use at least one of these dose optimization techniques: automated exposure control; mA and/or kV adjustment per patient size (includes targeted exams where dose is matched to clinical indication); or iterative reconstruction. FINDINGS: A few stable subcentimeter noncalcified nodules. Stable 4 mm pleural-based nodule LEFT lower lobe at the diaphragm. 5 mm nodule along the RIGHT fissure. Tiny nodule LEFT upper lobe subpleural at the apex. See bookmarked images. A few calcified granulomas. No mediastinal or hilar lymphadenopathy. Normal caliber thoracic aorta. No aortic calcification. Prior cholecystectomy. Hypertrophic changes thoracic spine. CT/CT chest ION (PULM ONLY) [id number] IMPRESSION: Images obtained for navigational bronchoscopy purposes
== END 2025-01-02 09:14 | disposition home or self-care (01) ==
LOC: RAD 09:14
PROVIDERS: PCP Family Medicine; Visit Provider Internal Medicine
DX: R91.8 Other nonspecific abnormal finding of lung field (principal); Z90.49 Acquired absence of other specified parts of digestive tract
CPT/HCPCS: 71250

== ENCOUNTER 2025-01-10 15:28 | Outpatient (CLI) | payer OTHER, MEDICAID, SELFPAY ==
--- NOTE | 2025-01-10 15:30 | US_ITS ---
WS: [id number] URINARY BLADDER ULTRASOUND HISTORY: urgency, post void dribbling COMPARISON: None available. Urinary bladder is only minimally distended. No intraluminal filling defect. No free fluid adjacent to the urinary bladder. Bladder Prevoid: 4.7 cm x 6.2 cm x 2.0 cm. Prevoid volume: 29.7 ml. Bladder Postvoid: Completely emptied. Postvoid volume: 0 ml. US/US bladder [id number] IMPRESSION: Normal ultrasound urinary bladder. No post void residual.
== END 2025-01-10 15:29 | disposition home or self-care (01) ==
LOC: RAD 15:29
PROVIDERS: PCP Family Medicine; Visit Provider Family Medicine
DX: R39.15 Urgency of urination (principal)
CPT/HCPCS: 76857

== ENCOUNTER → 2025-01-24 14:11 | Outpatient (BNVA) | payer OTHER, MEDICAID, SELFPAY | PROVIDERS: PCP Family Medicine; Visit Provider Internal Medicine Cardiovascular Disease | DX: J44.1 Chronic obstructive pulmonary disease with (acute) exacerbation (principal); I48.91 Unspecified atrial fibrillation; G25.0 Essential tremor; F17.210 Nicotine dependence, cigarettes, uncomplicated | CPT/HCPCS: 99214 ==

== ENCOUNTER → 2025-01-31 08:54 | Outpatient (BNVA) | payer MEDICARE, MEDICAID, SELFPAY | PROVIDERS: PCP Family Medicine; Visit Provider Internal Medicine | DX: J44.89 Other specified chronic obstructive pulmonary disease (principal); R91.8 Other nonspecific abnormal finding of lung field; Z71.6 Tobacco abuse counseling; F17.218 Nicotine dependence, cigarettes, with other nicotine-induced disorders; J44.9 Chronic obstructive pulmonary disease, unspecified | CPT/HCPCS: 36415; 85025; 99214; 99406; Q3014 ==

== ENCOUNTER → 2025-02-08 08:36 | Outpatient (BNVA) | payer MEDICARE, MEDICAID, SELFPAY | PROVIDERS: PCP Family Medicine; Visit Provider Family Medicine | DX: I10 Essential (primary) hypertension (principal); I48.91 Unspecified atrial fibrillation; R73.03 Prediabetes; R73.01 Impaired fasting glucose | CPT/HCPCS: 80053; 83036 ==

== ENCOUNTER 2025-03-14 14:43 | Outpatient (CLI) | payer MEDICARE, MEDICAID, SELFPAY ==
--- NOTE | 2025-03-14 15:00 | XR_ITS ---
WS: [id number] DEXA (DUAL ENERGY X-RAY ABSORPTIOMETRY) Bone mineral density was performed using a [employer] machine. HISTORY: postmenopausal COMPARISON: 06/21/2019 Lumbar spine BMD (L1-L4): 1.227 g/cm2 T score: 0.4 Z score: 1.2 Total hip BMD: Left: 0.962 g/cm2. T score: -0.4 Z score: 0.3 Right: 0.997 g/cm2. T score: -0.1 Z score: 0.6 10 year probability of a major osteoporotic fracture is 7.2%. Compared to the prior study from 06/21/2019. Lumbar spine bone mineral density has decreased by 0.2%. Bilateral hips bone mineral density has decreased by 8.0%. XR/XR DEXA axial skeleton* [id number] IMPRESSION: NORMAL BONE MINERAL DENSITY based upon the WHO classification for females. Significant decrease in bone mineral density within the hips since the prior .
== END 2025-03-14 14:44 | disposition home or self-care (01) ==
LOC: RAD 14:44
PROVIDERS: PCP Family Medicine; Visit Provider Family Medicine
DX: Z13.820 Encounter for screening for osteoporosis (principal); Z78.0 Asymptomatic menopausal state
CPT/HCPCS: 77080

== ENCOUNTER 2025-03-15 15:20 | Outpatient (CLI) | payer MEDICARE, MEDICAID, SELFPAY ==
--- NOTE | 2025-03-15 15:30 | USR_ITS ---
PROCEDURE INFORMATION: Exam: US Soft Tissue Head and Neck, Thyroid Exam date and time: 03/15/2025 3:41 PM Age: 64 years old Clinical indication: Abnormal findings; Abnormal radiologic study of neck; Additional info: Left thyroid nodule incidental on CT TECHNIQUE: Imaging protocol: Real-time ultrasound scan of the neck with image documentation. Exam focused on the thyroid. COMPARISON: [place] thyroid [id number] 05/03/2018 7:56 AM FINDINGS: Right thyroid lobe: Thyroid nodule superiorly, measures up to 0.8 cm, anechoic, cystic, wider than tall, sharp margins, no echogenic foci, TR 1, no further follow-up typically indicated. Left thyroid lobe: No nodules. Isthmus: No nodules. US/US thyroid [id number] IMPRESSION: Small benign-appearing small thyroid nodule as described above, not typically followed on imaging given benign appearance.
== END 2025-03-15 15:21 | disposition home or self-care (01) ==
LOC: RAD 15:21
PROVIDERS: PCP Family Medicine; Visit Provider Family Medicine
DX: E04.1 Nontoxic single thyroid nodule (principal)
CPT/HCPCS: 76536

== ENCOUNTER → 2025-04-04 15:22 | Outpatient (BNVA) | payer MEDICARE, MEDICAID, SELFPAY | PROVIDERS: PCP Family Medicine; Visit Provider Internal Medicine | DX: J44.89 Other specified chronic obstructive pulmonary disease (principal); R91.8 Other nonspecific abnormal finding of lung field; Z87.891 Personal history of nicotine dependence | CPT/HCPCS: 99214; Q3014 ==